=== PATIENT | male | born 1965 | race Caucasian/White ===

== ENCOUNTER 2017-05-11 10:07 | Inpatient (IN) | payer OTHER ==
[~2017-05-11] VITALS: Ht 193 cm; Wt 86.9 kg
--- NOTE | ~2017-05-11 | HP ---
[facility] [address] [place], [place] [address] Draft DATE OF ADMISSION: 05/11/17 SUBJECTIVE I was asked by the ER physician to see this gentleman for a bowel obstruction. The history is that the patient says that he was sick for 2 days with nausea and vomiting, frankly vomited 20 times. Never had belly surgery before. Workup by the ER doctor found him to have an apparent high-grade small bowel obstruction on CT scan. He does not have a regular physician. PAST MEDICAL HISTORY: He says he is allergic to penicillin. PAST SURGICAL HISTORY Include right inguinal hernia in the past. He says he takes no medicines. Denies hypertension, diabetes, tuberculosis, seizures or transfusion. He says he has not smoked for 3 days. He smokes half to a pack of Camel daily. Does not use alcohol and there is no history of thromboembolic disease. SOCIAL HISTORY He is not , never been. Has 3 children, ages 25 to 30. His mother is his next of kin. He does not know her phone number. He is not employed. 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 He lives in [place], about 10 minutes from the hospital. His hobby is dirt bike riding and working on cars. REVIEW OF SYSTEMS Negative for SC, negative for angina, negative for stroke. He says negative for pulmonary disease; however, he has wheezing and rhonchi on his physical. Negative for GI problems except for the present illness. Negative for musculoskeletal problems. He says he has his left knee operated on. Negative for problems. Negative for skin problems. Negative for blood problems such as hepatitis. Negative for thyroid or endocrine problems. Negative for lymphatic problems and negative for neurologic problems. PHYSICAL EXAMINATION GENERAL: large male who is cooperative, has abdominal distention. VITAL SIGNS: Okay. Afebrile, pulse 89, respiratory rate 19, blood pressure 112/76. HEAD, EYES, EARS, NOSE, AND THROAT: Normal. NECK: Without jugular venous distention, masses or bruits. Nurses put an NG tube in. I have reviewed the chest x-ray, told them to put it down another 3 inches and secure it. CHEST: Has wheezes and rhonchi throughout. HEART: Has a regular rate and rhythm without murmur, gallop or murmur. ABDOMEN: Has bowel tones. He has abdominal distention. So far, the NG tube is not putting much out. No evidence of peritonitis. He says his belly does hurt. PATIENT NAME: HERIBERTO BOOTHE HISTORY AND PHYSICAL DATE OF : 61 PHYSICIAN: JEAN MARIE BRIDGES MD REPORT #: [id number] REPORT IS CONFIDENTIAL AND NOT TO BE RELEASED WITHOUT AUTHORIZATION [facility] [address] [place], [place] [address] Draft RECTAL: Normal. HEME: Negative. GENITOURINARY: Normal. I do not detect any inguinal hernias. EXTREMITIES: Pedal pulses are normal. NEUROLOGIC: Normal for motor, sensory and speech, I presume he walked into the ER. LABORATORY DATA Reviewed. His white count is elevated at 17.8, hematocrit 55, platelets 400,000, 80% neutrophils, I suspect some of this is volume imbalance. Sodium 134, potassium 4.2, BUN 17, creatinine 1.2, glucose 154. LFTs are okay. Coags are pending. I told the ER doctor to get a chest x-ray, which we got after we put his NG tube in and which shows no obvious pulmonary infiltrates and I will get an EKG on him. IMPRESSION This is a 51-year-old male with an unusual history of no prior pelvic surgery. No injuries that he is aware of who appears to have a high-grade bowel obstruction. With a little bit of luck, he will resolve this with medical management. We gave NG suction, Maalox, IV fluid hydration, put a Robbins in and monitor him closely. Do an acute abdomen series on tomorrow morning and repeat his labs. Hopefully, he will get better. I did discuss with the patient the fact that I am a [place] surgeon, I will be leaving the area tomorrow morning at 7:00 a.m. and turning his care over to one of the local surgeons. He did not have a problem with that. Plan is to suck him out and see where it goes today. At the present time, I do not believe as an addendum that he has an acute surgical abdomen and that we can treat him medically and see where this goes. MD SUHAIL Jensen/Seth /[id number] PATIENT NAME: HERIBERTO BOOTHE HISTORY AND PHYSICAL DATE OF : 61 PHYSICIAN: JEAN MARIE BRIDGES MD REPORT #: [id number] REPORT IS CONFIDENTIAL AND NOT TO BE RELEASED WITHOUT AUTHORIZATION
[~2017-05-11 10:07] MED LIST: GENTAMICIN SULFA5 ML OS; IBUPROFEN600 MG PO; NORCO 5-325 TA1 EACH PO
--- NOTE | 2017-05-11 17:25 | NUR ---
Catheter placed at 1445 by Jaswinder CARVER. Catheter output 475ml at 1720. Bernadine urine. NG to LIS. Pt has foul body odor. Personal belongings placed in closet. Pt requested bello be removed. Educated patient on need for catheter and how the catheter works. RN explained "there is a balloon in your bladder that holds the catheter in place, so you will not want to pull it out without causing a lot of pain and damage to the urethra/penis". Pt understood teaching. Pt lying on right side. Pt requested cell phone to make personal phone call.
--- NOTE | 2017-05-11 19:02 | NUR ---
RECEIVED REPORT FROM RN. PATIENT DENIES NEEDS AT THIS TIME.
--- NOTE | 2017-05-11 20:19 | EKG ---
[facility] [address] [facility] [place] [address] Signed Normal sinus rhythm Normal ECG No previous ECGs available Confirmed by MICHAEL LUO MD ([id number]) on 05/11/2017 8:19:39 PM Electronically Signed By: MICHAEL LUO MD 05/11/17 2019 PATIENT NAME: HERIBERTO BOOTHE Electrocardiogram DATE OF : 61 PHYSICIAN: MICHAEL LUO MD REPORT #: [id number] REPORT IS CONFIDENTIAL AND NOT TO BE RELEASED WITHOUT AUTHORIZATION
--- NOTE | 2017-05-11 20:50 | NUR ---
ASSESSMENT DONE AND EVENING MEDICATION GIVEN. PATIENT DENIES NEEDS AT THIS TIME.
--- NOTE | 2017-05-11 21:48 | NUR ---
PATIENT GIVEN NICOTINE PATCH AND NG TUBE BACK ON LIS. PATIENT DENIES NEEDS AT THIS TIME.
--- NOTE | 2017-05-11 22:30 | NUR ---
PT UTILIZES CALL LIGHT, STATES THAT HE WAS INCONTINENT IN BED. PT UP TO BSC. DRAW SHEET CHANGED, NEW CHUX PAD PLACED. PT CONTINUES TO HAVE LIQUID STOOL. PT BACK TO BED. REQUESTS "WARM BLANKIE". DENIES OTHER NEEDS AT THIS TIME. CALL LIGHT WITHIN REACH.
--- NOTE | 2017-05-11 23:12 | NUR ---
PATIENT RESTING IN BED COMFORTABLY. BREATHING IS EVEN AND UNLABORED.
--- NOTE | 2017-05-12 00:07 | NUR ---
PATIENT RESTING COMFORTABLY IN BED. BREATHING IS EVEN AND UNLABORED.
--- NOTE | 2017-05-12 01:53 | NUR ---
PATIENT RESTING COMFORTABLY IN BED. RESPIRATIONS ARE EVEN AND UNLABORED. VITALS DONE, MEDICATION GIVEN, AND ASSESSMENT DONE. PATIENT DENIES NEEDS AT THIS TIME.
--- NOTE | 2017-05-12 04:09 | NUR ---
PATIENT RESTING IN BED. BREATHING IS EVEN AND UNLABORED.
--- NOTE | 2017-05-12 05:13 | NUR ---
PATIENT'S NIGHT WAS UNEVENTFUL AND RESTED IN BED MAJORITY OF SHIFT. VSS, NO COMPLAINTS OF NAUSEA. REPORTED 7/10 ABD PAIN, BUT DENIED PAIN MEDICATION. NO ACUTE CHANGES FROM BEGINNING OF SHIFT, INTENTIONAL ROUNDING DONE WITH ALL PATIENT'S NEEDS MET.
--- NOTE | 2017-05-12 05:49 | NUR ---
SHIFT ASSESSMENT DONE. PATIENT DENIES NEEDS AT THIS TIME.
--- NOTE | 2017-05-12 06:34 | NUR ---
PT OFF THE FLOOR TO XRAY. PT NG TUBE CLAMPED AND IV SL. PT TRANSFERED FROM BED TO INDEPENDENTLY.
--- NOTE | 2017-05-12 07:32 | NUR ---
BEDSIDE REPORT. PT ALERT. ADDRESSED WEARING SCDS WITH PT PER ORDERS. PT AGREED SCDS PLACED ON PT THIS AM.
--- NOTE | 2017-05-12 09:00 | NUR ---
KING CATHETER REMOVED, 9ML STERILE WATER REMOVED FROM BULB, PT TOLERATED WELL.
--- NOTE | 2017-05-12 11:06 | NUR ---
MED REC COMPLETE. PATIENT TAKES NO HOME MEDS.
--- NOTE | 2017-05-12 12:08 | NUR ---
PT RESTING IN BED, NG TUBE DOESN'T SEEM TO BE MUCH OF A BOTHER. HE MENTIONED THAT HE IS FEELING BETTER TODAY, AND HOPES THE SBO WILL CLEAR WITHOUT SURGERY.PT JOKED WITH RN WHEN SHE CAME IN, REQUESTED PRAYER, AND THANKED ME FOR STOPPNG BY. WILL CONTINUE TO FOLLOW NEEDED
--- NOTE | 2017-05-12 14:27 | NUR ---
PT BACK TO BED AFTER AMBULATING FOR 20 MINUTES. PT TOELRATED ACTIVITY WELL
--- NOTE | 2017-05-12 17:45 | NUR ---
PT HAS BEEN UP AMBULATING IN HALLS, HAS REQUIRED PAIN COVERAGE TWICE THIS SHIFT, HAS HAD THREE LIQUID STOOLS THIS SHIFT. NGT REPOSTIONED TWICE OVER SHIFT, DRIANING WELL. INDEPENDENT IN ROOM, WHEN NGT CLAMPED. HE HAS NOT HAD ANY NASUEA, HE REPORTS FEELING VERY HUNGRY. NGT HAS HAD VERY LITTLE OUT OVER SHIFT. VOIDING WELL POST KING REMOVED THIS AM. PT HAS REPORTED FEELING STRESSED ABOUT THINGS HE NEEDS TO GET DONE AT HOME.
--- NOTE | 2017-05-12 19:13 | NUR ---
RECEIVED REPORT FROM RN. PATIENT DENIES NEEDS AT THIS TIME.
--- NOTE | 2017-05-12 21:15 | NUR ---
ASSESSMENT DONE AND EVENING MEDICATIONS ADMINISTERED. PATIENT DENIES NEEDS AT THIS TIME.
--- NOTE | 2017-05-12 21:43 | NUR ---
PATIENT REPORTS 7/10 PAIN IN ABD. PAIN MEDICATION ADMINISTERED PER EMAR. PATIENT DENIES NEEDS AT THIS TIME.
--- NOTE | 2017-05-13 | NUR ---
PATIENT RESTING IN BED. BREATHING IS EVEN AND UNLABORED.
--- NOTE | 2017-05-13 00:45 | NUR ---
YPATIENT RESTING COMFORTABLY IN BED. BREATHING IS EVEN AND UNLABORED, CALL LIGHT WITHIN REACH.
--- NOTE | 2017-05-13 01:40 | NUR ---
PATIENT REPORTS 8/10 ABD PAIN. PAIN MEDICATION GIVEN PER EMAR. THROAT LOZENGE GIVEN FOR SORE THROAT. PATIENT DENIES OTHER NEEDS AT THIS TIME.
--- NOTE | 2017-05-13 03:15 | NUR ---
PATIENT REPORTS 5/10 ABDOMINAL PAIN, BUT DENIES NEED OF PAIN MEDICATION. HE IS RESTING COMFORTABLY IN BED, CALL LIGHT WITHIN REACH.
--- NOTE | 2017-05-13 04:33 | NUR ---
PATIENT'S NIGHT HAS BEEN UNEVENTFUL. VSS, NO COMPLAINTS OF NAUSEA. ABD PAIN HAS BEEN TREATED WITH PRN PAIN MEDICATION X2. NO ACUTE CHANGES FROM BEGINNING OF SHIFT ASSESSMENT. INTENTIONAL ROUNDING DONE WITH ALL PATIENT'S NEEDS MET.
--- NOTE | 2017-05-13 05:00 | NUR ---
PATIENT RESTING COMFORTABLY IN BED. BREATHING IS EVEN AND UNLABORED.
--- NOTE | 2017-05-13 06:29 | NUR ---
PATIENT REPORTS 6/10 ABD PAIN. PRN PAIN MEDICATION ADMINISTERED PER EMAR. PATIENT DENIES OTHER NEEDS AT THIS TIME.
--- NOTE | 2017-05-13 06:44 | NUR ---
PATIENT OFF FLOOR WITH RADIOLOGY VIA WHEELCHAIR.
--- NOTE | 2017-05-13 07:40 | NUR ---
RECIEVED REPORT FROM DAY SHIFT NURSE. PT RESTING IN BED WITH AT BEDSIDE. CLEAR LIQUID TRAY DELIVERED. RN APPLYTING INT SUCTION TO NGT. PT STATES PAIN AT A TOLERABLE LEVEL. DENIES NEEDS. CALL CASTILLO IN REACH.
--- NOTE | 2017-05-13 09:17 | NUR ---
PT IN BED WITH AT BEDSIDE. ADMINISTERD FLU VAX, CONSENT OBTAINED. PT C/O PAIN, ADMINISTERED PAIN MEDS PER MAR AND CEPACOL LOZENGE. PT STILL STATES HE FEELS DISTENDED. ACITVE BOWEL SOUNDS AUSCULTATED THROUGHOUT. PASSING FLATUS. NGT IN PLACE. IVF INFUSING W/O DIFFICULTY. PT DENIES FURTHER NEEDS. CALL CASTILLO IN REACH.
[2017-05-13] MEDS ORDERED: VITAMIN E200 UNI1 PO (09:38)
[2017-05-13] MEDS ORDERED: B COMPLEX1 EACH PO (09:38)
[2017-05-13] MEDS ORDERED: VITAMIN C500 M1 PO (09:39)
[2017-05-13] MEDS ORDERED: VITAMIN D400 UNIT PO (09:39)
[2017-05-13] MEDS ORDERED: ASPIRIN325 MG PO (09:40)
--- NOTE | 2017-05-13 09:41 | NUR ---
MED REC COMPLETE
--- NOTE | 2017-05-13 11:00 | NUR ---
PT RESTING IN BED. MAALOX ADMINISTERED THROUGH NGT IRRIGATED WITH WATER. PT DENIES NEEDS. CALL CASTILLO IN REACH.
--- NOTE | 2017-05-13 11:16 | NUR ---
PT SLEEPING. NGT SUCTION TURNED BACK ON AFTER MAALOX ADMINISTRATION. CALL CASTILLO IN REACH.
--- NOTE | 2017-05-13 12:00 | NUR ---
PATIENT TALKING ON PHONE WILL CHECK IN AGAIN FOR A SHOWER.
--- NOTE | 2017-05-13 12:20 | NUR ---
PT SLEEPING. CALL CASTILLO IN REACH.
--- NOTE | 2017-05-13 12:44 | NUR ---
PATIENT IN BED RESTING WITH EYES CLOSED.
--- NOTE | 2017-05-13 13:30 | NUR ---
PT AGITATED, RN AT BEDSIDE REQUESTING ASSISTANCE. DR. KNAPP CALLED, TELEPHONE ORDER TO GIVE 1 MG IV ATIVAN NOW, REPEAT DOSE IN 20 MINUTES IF NEEDED, RBOV. 1MG ATIVAN GIVEN.
--- NOTE | 2017-05-13 13:39 | NUR ---
RE-TAPED NGT TO NOSE. PT STATES HE CANNOT TOLERATE BECAUSE HE "CAN'T SWALLOW." REMOVED TAPE. PT CONTINUED TO ADVANCE NGT INTO HIS NOSE. PT WOULD NOT LET ME TOUCH THE NGT AND WOULD NOT LET ME PULL IT OUT MORE TO WHERE IT WAS BEFORE. PT RATES PAIN "20/10" IN THROAT. PT APPEARS VERY ANXIOUS (RESTLESS & SWEATING). MEDICATION ADMINISTERED PER OCT.
--- NOTE | 2017-05-13 14:26 | NUR ---
PATIENT RESTING IN BED WITH EYES CLOSED. CALL BUTT0N IN REACH. NO NEEDS AT THIS TIME.
--- NOTE | 2017-05-13 15:09 | NUR ---
PT SLEEPING. URINAL EMPTIED. URINE CLEAR/YELLOW. CALL CASTILLO IN REACH.
--- NOTE | 2017-05-13 16:20 | NUR ---
PT SHOWERED. WIPED DOWN WITH MINNA WIPES. PT C/O PAIN IN THROAT, PAIN MEDICATION ADMINISTERED PER OCT. AIRCRAFT PNEUDRAULIC [employer]S MECHANIC IN TO TRANSPORT PT TO OR. CHECKLIST COMPLETE.
--- NOTE | 2017-05-13 17:39 | NUR ---
PT OFF UNIT.
--- NOTE | 2017-05-13 18:22 | NUR ---
PT WENT TO THE OR THIS EVENING. HAD TO RETAPE NGT TO NOSE THIS AFTERNOON. PT BECAME VERY ANXIOUS AND COMBATIVE ALMOST PULLED OUT NGT. OBTAINED ORDER FROM FOR ATNICHELLE WHICH WORKED WELL. NO STOOLS TODAY, PASSING FLATUS, MINIMAL PAIN IN ABD. PAIN MOSTLY LOCATED IN THROAT. PT SHOULD BE RETURNING TO FLOOR AT 1900.
--- NOTE | 2017-05-13 18:51 | NUR ---
05/13/17 185 Sangita Cramer ORAL AIRWAY REMOVED ON PATIENT'S ENTRY TO PACU. PT RESTLESS AND REPORTING "I CAN'T BREATHE". OXYGEN SATURATION REMAINS 100% HOB ELEVATED. PT REMOVES OXYGEN MASK AND IS ON RA.
--- NOTE | 2017-05-13 19:15 | NUR ---
RECEIVED REPORT FROM RN. PATIENT OFF FLOOR IN SURGERY.
--- NOTE | 2017-05-13 20:00 | NUR ---
PATIENT BACK TO FLOOR FROM SURGERY. RECEIVED REPORT FROM SURGICAL NURSE. PATIENT RESTING COMFORTABLY IN BED. 2L OF 02 WITH PUSLE OX AT 95%. ASSESSMENT DONE, EVENING MEDICATION GIVEN. PATIENT DENIES NEEDS AT THIS TIME.
--- NOTE | 2017-05-13 20:56 | NUR ---
SPOKE WITH DR. KNAPP REGARDING PATIENT'S BLOOD PRESSURE OF 88/56, HEART RATE 71. 1L LR BOLUS ORDERED X1. MAALOX ORDER DC'D PER MD'S ORDER. KING IS TO STAY IN PLACE UNTIL PATIENT IS AMBULATORY AND URINE OUTPUT IS APPROPRIATE PER MD.
--- NOTE | 2017-05-13 22:11 | NUR ---
OVERHEARD PT YELLING CUSS WORDS AT HIS GIRLFRIEND FROM HIS ROOM, YELLING WAS HEARD ALL THE WAY TO THE NURSES STATION. ENTERED PT'S ROOM, PT APPEARED TO BE UPSET AT THE GIRLFRIEND FOR SOMETHING TO DO WITH HIS PHONE. PT TOLD THE GIRLFRIEND TO "GET THE FUCK OUT OF MY ROOM, YOU PEICE OF SHIT." GIRLFRIEND LEFT. PT CALM NOW, VITALS TAKEN. BROUGHT PT SOME APPLE JUICE. NO FURTHER NEEDS. CALL LIGHT IN REACH.
--- NOTE | 2017-05-14 00:58 | NUR ---
PATIENT REPORTS 10/10 ABD PAIN. RESPIRATIONS AT 16 BPM, HEART RATE 99, BP, 126/101. IV PRN PAIN MEDICATION GIVEN PER EMAR. PATIENT DENIES OTHER NEEDS AT THIS TIME.
--- NOTE | 2017-05-14 02:07 | NUR ---
PATIENT RESTING COMFORTABLY IN BED. BREATHING IS EVENE AND UNLABORED. O2 SAT AT 98% ON 2L VIA NC, HEART RATE IS 94. OXYGEN TITRATED DOWN TO 1L. WILL CONTINUE TO MONITOR O2 SAT.
--- NOTE | 2017-05-14 03:41 | NUR ---
PATIENT IS RESTING IN BED. REPOSITIONED AND STRAIGHTENED UP BED FOR COMFORT. BREATHING IS EVEN AND UNLABORED, 02 SAT AT 99% ON 1L VIA NC. TOOK OXYGEN OFF AND WILL MONITOR OXYGEN SATURATION. PULSE IS 89. PATIENT REPORTS ABD PAIN, BUT DENIES PAIN MEDICATION. HE DENIES NEEDS AT THIS TIME.
--- NOTE | 2017-05-14 04:50 | NUR ---
PATIENT REPORTS 10/10 PAIN. PRN PAIN MEDICATION ADMINISTERED. EDUCATED PATIENT ON PAIN CONTROL AND PATIENT STATED THAT HE UNDERSTOOD AND DEMONSTRATED KNOWLEDGE WITH FEEDBACK. PATIENT DENIES OTHER NEEDS AT THIS TIME.
--- NOTE | 2017-05-14 05:59 | NUR ---
PATIENT'S NIGHT WAS PRIMARILY UNEVENTFUL. HE RESTED IN BED FOR MAJORITY OF SHIFT. IV PRN PAIN MEDICATION GIVEN X3 PER EMAR. NO ACUTE CHANGES FROM BEGINNING OF SHIFT ASSESSMENT. OP SITES REMAIN C/D/I.
--- NOTE | 2017-05-14 06:20 | NUR ---
PT COMPLAINED OF 7/10 PAIN, GAVE DILAUDID IV FOR PAIN. PT IN NO APPARENT DISTRESS AT THIS TIME. LIGHTS AND TV OFF IN ROOM.
--- NOTE | 2017-05-14 07:45 | NUR ---
RECIEVED REPORT FROM DAY SHIFT NURSE. PT RESTING IN BED. MIDLINE ABDOMINAL DRESSING C/D/I. LAP SITE WITH MINIMAL DRY, BLOODY DRAINAGE. PT RATES HIS PAIN 04/02. STATES HE IS UNABLE TO DESCRIBE WHAT THE PAIN FEELS LIKE, BUT ALSO SAYS "IT FEELS LIKE A CHAINSAW RIPPED THROUGH MY STOMACH FROM TOP TO BOTTOM." PAIN MEDS ADMINISTERED PER OCT. MEAL TRAY DELIVERED. PT LAUGHING AND SMILING TELLING ME STORIES ABOUT ALL HIS CARS HE OWNS. KING EMPTIED. PT DENIES FURTHER NEEDS. CALL CASTILLO IN REACH.
--- NOTE | 2017-05-14 09:20 | NUR ---
PT REQUESTING FOR MORE PAIN MEDICATION. RN STARTING NEW IV SITE SO SHE MAY ADMINISTER.
--- NOTE | 2017-05-14 10:42 | NUR ---
PT RESTING IN BED. DENIES NEEDS AT THIS TIME. CALL CASTILLO IN REACH.
--- NOTE | 2017-05-14 10:54 | NUR ---
OBTAINED ORDER TO D/C KING CATHETER FROM DR. KNAPP.
--- NOTE | 2017-05-14 11:06 | NUR ---
REMOVED KING CATHETER. P/T C/O PAIN. STATES HE WAS "DUE" 30 MINUTES AGO. I REMINDED HIM HE IS NOT "DUE" FOR ANYTHING AT THIS TIME AND THAT THE PAIN MEDICATION IS BASED ON AN NEEDED SCHEDULE. EDUCATED HIM WHY IT IS IMPORTANT TO ONLY TAKE PAIN MEDICATION IF HE IS IN MODERATE TO SEVERE PAIN. PT STATES HE UNDERSTANDS. CALL CASTILLO IN REACH.
--- NOTE | 2017-05-14 12:26 | NUR ---
pt ambulating in hallway independently. gait steady. denies needs.
--- NOTE | 2017-05-14 13:08 | NUR ---
PATIENT AWAKE IN BED. PICKED UP ROOM SET HIM UP FOR AM CARE. EMPTEYED GARBAGE. FRESH ICE WATER CHANGED LINENS.
--- NOTE | 2017-05-14 14:01 | NUR ---
PT RESTING IN BED. PT VERY AGITATED AT THIS TIME OVER HIS GIRLFRIEND AND HIS CATS AT HOME THAT ARE NOT FED. HE IS ALSO FRUSTERATED AT THE FACT HE STILL HAS NOT PASSED ANY GAS. HE HAS BEEN REQUESTING AN ENEMA. PT HAS NOT PASSED FLATUS YET BUT HE DID "DIG SOME POOP OUT." PT STATES HIS PROBLEM IS THAT HE ATE TOO MUCH CHEESE BEFORE HE WAS ADMITTED. STATES HIS STOOL APPEARS TO LOOK LIKE CHEESE. ATIVAN ADMINISTERED. ATTEMPTED TO CALL ARIA BUT I BELIEVE HE HAS A PROCEDURE AT THIS TIME. CALL ANNA IN REACH.
--- NOTE | 2017-05-14 15:15 | NUR ---
PT STILL AGITATED AND WANTS A LAXATIVE. CALLED DR. KNAPP. OBTIANED VERBAL ORDER TO REPEAT 0.5MG ATIVAN IVP NOW. ADMINISTERED MEDICATION. CALL ANNA IN REACH.
--- NOTE | 2017-05-14 15:31 | NUR ---
dr. law in to see pt.
--- NOTE | 2017-05-14 16:21 | NUR ---
ADMINISTERED SOAPS OTILIA ENEMA. PT TOLERATED 500CC. PT C/O PAIN IN HIS LOWER ABDOMINAL QUADRANTS. PAIN MEDS ADMINISTERED PER OCT. PT DENIES FURTHER NEEDS. CALL CASTILLO IN REACH.
--- NOTE | 2017-05-14 16:58 | NUR ---
PT DID NOT HAVE LUCK WITH FIRST ENEMA. SMALL AMOUNT OF STOOL OUT. ADMINISTERED SECOND ENEMA-[id number]. PT RESTING IN BED. SON AT BEDSIDE. DENIES NEEDS AT THIS TIME. CALL CASTILLO IN REACH.
--- NOTE | 2017-05-14 17:59 | NUR ---
PT HAS HAD AN OKAY DAY. HE HAS BEEN AMBULATING THE HALLWAYS, PAIN HAS BEEN CONTROLLED WITH DILAUDID. PT BECAME VERY AGITATED TODAY BECAUSE HE IS FRUSTERATED HE HAS NOT BEEN ABLE TO PASS GAS EVEN WITH AMBULATING THE HALLWAYS. HE IS ALSO ANXIOUS ABOUT HIS ANIMALS AT HOME NOT GETTING FED AND HAVING NO WATER. HE IS UPSET AT HIS AND DOES NOT TRUST HER TO FEED HIS ANIMALS. ATIVAN HAS BEEN GIVEN NEEDED. TWO SOAP SUDS ENEMAS ADMINISTERED. BS ACTIVE. NO FLATUS. IVF INFUSING. NEW IV IN L AC.
--- NOTE | 2017-05-14 19:00 | NUR ---
RECEIVED REPORT AT 1900. FOUND PT IN BED SLEEPING.
--- NOTE | 2017-05-14 22:06 | NUR ---
CAME INTO PT ROOM AND FOUND DULCOLAX PILLS THAT HE HAD TAKEN FROM HIS HOUSE. PT STATED THAT HE HAS BEEN TAKING THEM. I TOOK THEM FROM HIM AND THEY WERE PUT INTO THE KITS-LIST FOR NOW. PT IS NOT PASSING GAS, PT HOWEVER STATED THAT HE HAD A VERY SMALL BM. I DID NOT SEE IT BECAUSE PT FLUSHED IT. PT SO FAR REMAINS CALM AND COOPERATIVE. PAIN ALWAYS IS A 8-10/10. ALL LOBES ARE CLEAR, ALL BOWEL TONES ARE HYPOACTIVE. V/S ARE WDL. PT SO FAR HAS AMBULATED X1 THIS SHIFT.
--- NOTE | 2017-05-15 00:58 | NUR ---
PT NEEDED MORE PAIN MEDICATION. PT HAS BEEN SLEEPING FOR THE LAST COUPLE OF HOURS. PT IS BACK IN BED. PT IS NOT PASSING GAS SO FAR.
--- NOTE | 2017-05-15 04:27 | NUR ---
PT SEEMS TO BE SLEEPING AT THIS TIME.
--- NOTE | 2017-05-15 05:06 | NUR ---
PAIN CONTROL HAS BEEN AN ISSUE FOR THE MOST PART OF THIS SHIFT. PT IS ON SERVICE GREETER DUE TO HIGH DOSES OF IV DILAUDED. PT HAS BOWEL TONES IN ALL QUADRANTS. PT DENIES PASSING GAS. PT STATED AT START OF SHIFT THAT HE HAD A SMALL BM. WHEN I LOOKED INTO TO TOILET THERE WAS ONLY A SCANT AMOUNT OF STOOL ON THE TOILET BOWEL WALL. AT START OF FIRST ASSESSMENT I NOTICED THAT PT HAS BEEN TAKING DULCOLAX TABLETS HE BROUGHT FROM HOME. I TOOK THEM FROM HIM AND THEY ARE IN HIS KIT-LIST AT THIS TIME. PT HAS REMAINED CALM AND COOPERATIVE SO FAR THIS SHIFT. PT AMBULATED X1 THIS SHIFT. V/S ARE WDL. PT HAS NORMAL BOWEL TONES IN ALL QUADRANTS.
--- NOTE | 2017-05-15 08:00 | NUR ---
PATIENT UP AMBULATING IN RIOS. COMPLAINTS OF IV POSITIONED ON ARM, PLACED NEW IV TO LEFT WRIST. ABDOMEN CONTINUES TO BE DISTENDED. COMPLAINTS OF PAIN, ADMINISTERED 1MG IV DILAUDID. RATES PAIN 5/10 ON PAIN SCALE. PATIENT VOIDING WELL, NO ACTIVE FLATUS. TALIB TONES ACTIVE. LUNG SOUNDS CLEAR.
--- NOTE | 2017-05-15 11:00 | NUR ---
CALLED DR. KNAPP TO REPORT UPDATE AND PATIENT STATUS. NO NEW ORDERS AT THIS TIME, JUST TO CONTINUE TO ENCOURAGE AMBULATION. PATIENT AGREES TO POC. STATES " AFTER I TAKE A NAP, I WILL GET UP AND WALK THESE HALLS LIKE A MAD MAN". PATIENT APPEARS CALM AND COMFORTABLE.
--- NOTE | 2017-05-15 13:00 | NUR ---
PATIENT AMBULATING IN HALLS. TOLERATING RICH MILK THAT DR. KNAPP WROTE OKAY TO HAVE. PATIENT APPEARS PLEASANT. INCSION'S DRY AND INTACT. PATIENT STATES " I AM ONLY HAVING PAIN AFTER I AMBULATE A WHOLE BUNCH". BOWEL TONES ACTIVE, NO FLATUS.
--- NOTE | 2017-05-15 17:00 | NUR ---
PATIENT CONTINUES TO AMBULATE THROUGHOUT HALLS FOR EXTENDED AMOUNTS OF TIME IN HALLS. APPEARS TO MOVE WITH EASE. HAD TO TELL PATIENT TO STOP USING IV POLE SCOOTER DOWN THE RIOS. PATIENT VERBALIZED UNDERSTANDING AND STOPPED ACTIVITY. CONTINUES TO TOLERATE CLEAR LIQUIDS.
--- NOTE | 2017-05-15 20:00 | NUR ---
RECEIVED REPORT. PATIENT IN BED IN GOOD SPIRITS TALKING ON THE PHONE. ALERT AND ORIENTED. PATIENT DENIES PAIN AND IS IN NO APPARENT DISTRESS.
--- NOTE | 2017-05-15 22:00 | NUR ---
PATIENT RESTING QUIETLY IN BED WATCHING TV. PATIENT HAS HYPOACTIVE BOWEL TONES X4. MIDLINE ABD DRESSING C/D/I AND STERISTRIP JUST BELOW STERNUM ALSO DRY AND INTACT. lUNG SOUND CLEAR THROUGHOUT ALL SABA. PATIENT IS ALERT, ORIENTED, AND COOPERATIVE. LOWER MIDLINE ABD PAIN 3/10, BUT PATIENT DECLINES PAIN MEDICATION AT THIS TIME. MOVES ALL EXTREMITIES, VOIDING PER URINAL WITHOUT DIFFICULTY. PERIPHERAL PULSES ALL STRONG AND EQUAL. HEART TONES NORMAL S1/S2. VITAL SIGNS WITHIN MEDICAL PARAMETERS. IV PATENT WITH NO REDDNESS OR SWELLING.
--- NOTE | 2017-05-16 00:01 | NUR ---
PATIENT HAS C/O 4/10 LOWER ABD PAIN AND REQUESTING PAIN MEDICATION. 1 MG OF DILAUDID SIVP GIVEN FOR PAIN.
--- NOTE | 2017-05-16 00:55 | NUR ---
PAIN REASSESSED AND PATIENT IS RESTING QUITLY, RESPIRATIONS EVEN AND UNLABORED, EYES CLOSED.
--- NOTE | 2017-05-16 02:28 | NUR ---
PATIENT AWAKE AT THIS TIME. PAIN 5/10 IN THE LOWER MIDLINE ABD, BUT PATIENT DOES NOT WISH TO HAVE PAIN MEDICATION AT THIS TIME. BOWEL TONES ARE STILL HYPOACTIVE IN ALL 4 QUADRANTS, BUT MORE ACTIVE THAN AT THE LAST ASSESSMENT. PATIENT IS IN GOOD SPIRITS AND DOES NOT APPEAR TO BE IN ANY DISTRESS.
--- NOTE | 2017-05-16 04:03 | NUR ---
PATIENT RESTING QUIETLY ON LEFT SIDE, EYES CLOSED, RESPIRATIONS EVEN AND UNLABORED.
--- NOTE | 2017-05-16 05:30 | NUR ---
PATIENT HAS SLEPT WELL MOST OF THE SHIFT. HE HAS ASKED FOR PAIN MEDICATION TWICE AND PAIN WAS RELIEVED EACH TIME WITH 1MG OF DILAUDID IV. PATIENTS LUNGS ARE CLEAR THROUGH OUT, HE IS ALERT AND ORIENTED, AND APPEARS TO BE IN FAIRLY EVERT SPIRITS. HIS BOWEL TONES ARE ARE STILL HYPOACTIVE IN ALL FOUR QUADRANTS. PATIENT HAS NOT HAD A BOWEL MOVEMENT AND IS STILL NOT PASSING GAS. HE IS TAKING CLEAR LIQUIDS WELL AND IS VOIDING WITHOUT DIFFICULTY. IV REMAINS D5LR AT 75MLS/HR.
--- NOTE | 2017-05-16 06:14 | NUR ---
PATIENT RESTING QUIETLY ON RIGHT SIDE, EYES CLOSED, RESPIRATIONS EVEN AND UNLABORED.
--- NOTE | 2017-05-16 06:37 | NUR ---
PATIENT HAD AN 8LB DECREASE IN HIS WEIGHT SINCE YESTERDAY.
--- NOTE | 2017-05-16 08:39 | NUR ---
PATIENT IS AWAKE IN BED. DID NOT NEED ANYTHING. WHITEBOARD UPDATED.
--- NOTE | 2017-05-16 08:40 | NUR ---
PATIENT IS AWAKE IN BED. DID NOT NEED ANYTHING CURRENTLY, WHITEBOARD UPDATED.
--- NOTE | 2017-05-16 10:00 | NUR ---
PATIENT UP AMBULATING IN HALLS, DR. KNAPP TO FLOOR TO ROUND. PATIENT MAY SHOWER, DIET ADVANCED TO REGULAR DIET. VS STABLE, AFEBRILE. ABDOMEN LESS DISTENDED.
--- NOTE | 2017-05-16 10:36 | OR ---
[facility] [address], [place] [address] Signed DATE OF PROCEDURE: 05/13/17 PREOPERATIVE DIAGNOSES Persistent small bowel obstruction. [place] abdomen. 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 PROCEDURE Laparoscopy. Conversion to open laparotomy with lysis of right lower quadrant adhesions and appendectomy. SURGEON: Segundo Knapp MD. ANESTHESIA: General endotracheal, Segundo Devine CRNA. INDICATION This 50-year-old white man was admitted by Dr. Obrien on 05/11/2017 with protracted nausea and vomiting and some diarrhea and abdominal distention and findings on CT scan showing a massively dilated stomach and dilated air-fluid levels and findings interpreted to be "high grade bowel obstruction." A nasogastric tube and Robbins catheter was placed and fluid resuscitation undertaken. I assumed his care. The following day. He has been monitored closely and been maintained with intravenous fluids, parenteral pain medication, and nasogastric tube decompression. His Robbins catheter was removed once serous fluid resuscitated. His white count was initially elevated to 18,500 and has progressively decreased, now 11,500. However, he maintains abdominal distention. He does not have much pain. Abdominal x-ray shows air fluid levels on KUB. Given the fact he has not had abdominal operation (other than right inguinal hernia repair), it is probable there is a surgical cause of obstruction other than adhesions and additional waiting is deemed inappropriate. I have offered laparoscopy with remedy of the problem that way if possible, possibly requiring conversion to open operation. He understands as does his common-law the risks of bleeding, infection, need for open procedure, need for bowel resection, and other unforeseen complications. Understanding this they wished to proceed. Electronically Signed By: SEGUNDO KNAPP MD 05/16/17 1036 PATIENT NAME: HERIBERTO BOOTHE OPERATIVE REPORT DATE OF : 61 PHYSICIAN: SEGUNDO KNAPP MD REPORT #: [id number] REPORT IS CONFIDENTIAL AND NOT TO BE RELEASED WITHOUT AUTHORIZATION [facility] [address], [place] [address] Signed FINDINGS On laparoscopic view, inflamed and dilated loops of bowel were noted. The liver was normal. The gallbladder looked to have chronic inflammatory change. The cecum itself appeared normal. Examination of the terminal ilium showed it to be somewhat scarred to the posterior pelvic peritoneum, it was not elevated in the typical way by any means. It was assumed this was the likely source of obstruction. There was no evidence whatsoever of Crohn's disease. The small bowel run proximally from a laparoscopic perspective showing no Meckel's diverticulum stricture or other particular problem. Attempts at mobilizing the ilium from the retroperitoneum and what appeared to be an Atretic and somewhat scarred but not acutely inflamed appendix were unsuccessful and on that basis, conversion to a mini-laparotomy with an infraumbilical incision was undertaken. He was ultimately found to have adhesions of the retroperitoneum associated with a long Atretic, non-acutely inflamed appendix. Mobility of the ilium, cecum, and of course appendectomy were performed allowing for what appeared to be freeing of the bowel. The bowel was run from the ligament of Treitz to the terminal ilium showing no sign of obstructive process otherwise. Th e ilium itself was slightly ischemic once mobilized, but with irrigation and so forth, it appeared to settle down and is viable. PROCEDURE IN DETAIL The patient was brought to the operating room, given a general endotracheal anesthetic. Preoperative antibiotic Cefoxitin was given. Sequential compression device stockings were used. A Robbins catheter was placed by the circulating nurse. The abdomen was clipped and prepared with Chlorhexidine solution and draped sterilely. An infraumbilical incision was made and using an open Shar cannula technique, pneumoperitoneum was achieved to a level of 14 mmHg of carbon dioxide gas. Intraabdominal inspection showed no sign of ascites or carcinomatosis, but definitely showed dilated loops of bowel, many of them significantly inflamed. Examination of the upper abdomen showed normal liver and a somewhat distended and chronically inflamed gallbladder. There was no sign of acute cholecystitis however. The table was positioned left side down and ultimately reverse Trendelenburg and examination of the cecum undertaken. The attempts to identify clearly the terminal ilium were unsuccessful initially. There appeared to be tethering of the bowel in the retroperitoneum behind the cec um. The tip of the appendix was identified. It was Atretic , not acutely inflamed, but apparently rather elongated. The small bowel was grasped where it was free proximal to the area of the terminal ileum and careful manipulation of the bowel undertaken examining the dilated loops proximally for other sources of obstruction. There was no evidence of Meckel's diverticulum or other problem. Attention was once again returned to the ileum. Normally, the ilium would be easily freed up and able to be mobilized and more fully examined, but it appeared to be tethered as described. Various maneuvers endoscopically were unsuccessful and it was Electronically Signed By: SEGUNDO KNAPP MD 05/16/17 1036 PATIENT NAME: HERIBERTO BOOTHE OPERATIVE REPORT DATE OF : 61 PHYSICIAN: SEGUNDO KNAPP MD REPORT #: [id number] REPORT IS CONFIDENTIAL AND NOT TO BE RELEASED WITHOUT AUTHORIZATION [facility] [address] [facility] [place], [place] [address] Signed clear that he would require extension of his infraumbilical incision to allow for open laparotomy. The trocars that were place d including the epigastric and suprapubic ones were removed under direct visualization showing no sign of bleeding. The infraumbilical incision was extended inferiorly, the abdomen was entered. The small bowel was delivered out of the abdomen extended from the ligament of Treitz to the terminal ileum and examined. It appeared definitely that there was tethering of the ilium to the retroperitoneum, but no neoplasm and certainly no evidence of Crohn's disease. Atretic appendix appeared to be part of the process. The cecum was mobilized a bit and ultimately the ilium freed more fully from tethering of the mesoappendix and mesoappendix was surprisingly elongated, Atretic, not acutely inflamed, but definitely part of this process. Ultimately, the mesoappendix was freed and secured with clips and divided. The base the appendix was clamped and crush hieu secured with a 3-0 Vicryl tie. Using 3-0 Vicryl suture, the stump was inverted using a Z-type stitch. The small bowel was run from the terminal ilium more proximally to the ligament of Treitz showing no sign of abnormality. The small bowel was returned to the abdominal cavity and warm irrigation undertaken which allowed its slightly ischemic appearance from brief evisceration to subside. Reinspection of the ileum was undertaken. It did show some minimal ischemic changes and irrigation was more fully undertaken and its vascular supply assured. After time it was reinspected and found to be viable. Copious amounts of intraabdominal irrigation was undertaken to "float" the bowel and allow for repositioning and natural configuration. The omentum was replaced over the abdominal contents after removal of irrigation fluid and after ascertaining no sign of bleeding. Midline fascia was reapproximated with running bidirectional #1 PDS suture. Subcutaneous tissue at the trocar sites and laparotomy incision were irrigated with saline solution. The skin closed with running subcuticular 3-0 Vicryl. Steri-Strips were applied as was a Mepilex silver sponge dressing and OpSite. The patient was ultimately extubated and transferred to recovery room in good condition having suffered no complication. Sponge, needle, and instrument counts reported as correct x3. Segundo Knapp MD Electronically Signed By: SEGUNDO KNAPP MD 05/16/17 1036 PATIENT NAME: HERIBERTO BOOTHE NORA OPERATIVE REPORT DATE OF : 61 PHYSICIAN: SEGUNDO KNAPP MD REPORT #: [id number] REPORT IS CONFIDENTIAL AND NOT TO BE RELEASED WITHOUT AUTHORIZATION [address] [address] Signed TAL/Seth /[id number] cc: Ed Obrien MD Electronically Signed By: SEGUNDO KNAPP MD 05/16/17 1036 PATIENT NAME: HERIBERTO BOOTHE OPERATIVE REPORT DATE OF : 61 PHYSICIAN: SEGUNDO KNAPP MD REPORT #: [id number] REPORT IS CONFIDENTIAL AND NOT TO BE RELEASED WITHOUT AUTHORIZATION
--- NOTE | 2017-05-16 10:36 | HP ---
[facility] [address], [place] [address] Signed DATE OF ADMISSION: 05/11/17 ISSUE: Small-bowel obstruction. HISTORY This 51-year-old white man was admitted by Dr. Obrien on May 11, 2017. Dr. Obrien was the [place] surgeon. He presented to the emergency room with abdominal pain that had been going on at least 24 hours and possibly more. He had a fair amount of diarrhea without associated bleeding as well as vomiting. He has never had abdominal operation, though did have left iliac bone harvest for a knee operation in the past as well as right inguinal hernia repair in the past. His evaluation included CT scan of the abdomen showing a "high-grade small bowel obstruction." He was admitted and given a nasogastric tube, a Robbins catheter and some fluid administration. I assumed care today having discussed the case with Dr. Obrien last night. The patient says he feels somewhat better. He has had no vomiting since the nasogastric tube has been in place and his pain is improved. He has had some diarrhea this morning he says, but the nurse who attends to him at this time does not know of any diarrhea since approximately 7:30 this morning. He denies abdominal surgery of any type. There has been no evidence of a hernia of any sort either. At admission, his white count was elevated to 17.8 with hematocrit of 55, platelets of 400,000. Liver enzymes normal and a creatinine of 1.2. An EKG has been obtained and interpreted by Dr. Dhillon and found to be normal. REVIEW OF SYSTEMS He denies any back pain or lower extremity pain. He has had no dysphagia or hematemesis. He does not generally have diarrhea. PHYSICAL EXAMINATION GENERAL: A tall white man, who looks to be in no current distress. VITAL SIGNS: Temperature 97.5, pulse 80, respirations 14, blood pressure 113/68. His urine output over the last 4 hours has been 128 mL. Robbins catheter shows clear urine. NECK: No thyromegaly or cervical adenopathy. Trachea is midline. He has no hoarseness. CHEST: Clear. HEART: Regular without murmur. Electronically Signed By: SEGUNDO KNAPP MD 05/16/17 1036 PATIENT NAME: HERIBERTO BOOTHE HISTORY AND PHYSICAL DATE OF : 61 PHYSICIAN: SEGUNDO KNAPP MD REPORT #: [id number] REPORT IS CONFIDENTIAL AND NOT TO BE RELEASED WITHOUT AUTHORIZATION [facility] [address], [place] [address] Signed ABDOMEN: Somewhat distended, but not particularly tender. There are no mass and no ascites. EXTREMITIES: No clubbing, cyanosis, or edema. There is a scar over his left anterior superior iliac spine indicative of prior bone harvest for his knee. LABORATORY DATA Lab studies today show a white count decreased to 13.5, hematocrit 46.6 platelets 317,000. Chem profile is essentially normal, glucose 119. Amylase and lipase are normal. His abdominal plain x-ray from today shows no significant change, showed multiple moderately dilated loops of small bowel up to 4.1 cm and multiple air-fluid levels noted. ASSESSMENT The patient has a small-bowel obstruction from unknown etiology having a virgin abdomen essentially. In most cases, operative intervention is necessary in this setting. The possibility of neoplasm of the small bowel, Crohn's disease, or inflammatory stricture or of course a de-Zac adhesion accounting for obstruction is a consideration. He needs additional fluid resuscitation, but likely will ultimately require operation. Spontaneous resolution of problem would be most welcome, but appears to be unlikely based on his progress so far. We discussed this in detail. I believe that the Robbins catheter can be removed and his urine output monitored reasonably without it at this time. MD TAL Garduno/Modl /[id number] Electronically Signed By: SEGUNDO KNAPP MD 05/16/17 1036 PATIENT NAME: HERIBERTO BOOTHE HISTORY AND PHYSICAL DATE OF : 61 PHYSICIAN: SEGUNDO KNAPP MD REPORT #: [id number] REPORT IS CONFIDENTIAL AND NOT TO BE RELEASED WITHOUT AUTHORIZATION
--- NOTE | 2017-05-16 13:00 | NUR ---
PATIENT TOLERATING REGULAR DIET WELL, NO COMPLAINTS OF PAIN. AT THIS TIME PATIENT IS RESTING IN BED WITH EYES CLOSED. PATIENT STATES " I AM FEELING SO GOOD AFTER A HOT SHOWER AND SOME REAL FOOD". PATIENT APPPEARS TEARY EYED. APROPRIATE WITH CARE.
--- NOTE | 2017-05-16 17:00 | NUR ---
PATIENT UP TO BATHROOM, AND UP AMBULATING IN HALLWAYS. DRINKING FLUIDS AND EATING WELL. WOKE UP FROM NAP, REPORTS FEELING UNCOMFORTABLE. PATIENT STATES " I AM FEELING HAPPY ABOUT EATING AND FEELING LIKE I COULD FART." REPORTS HE DOES NOT WANT TO PUSH THE GAS OUT BUT CAN FEEL IT MOVING INSIDE OF HIM. ENCOURAGED PATIENT TO CONTINUE TO AMBULATE IN HALLS.
--- NOTE | 2017-05-16 18:30 | NUR ---
PATIENT'S ARRIVED TO FLOOR, PATIENT SITTING IN ROOM TEARY EYED, AND APPEARING ANXIOUS WITH DRAMATIC ARM MOVEMENTS, AND TALKING VERY LOUDLY. WENT TO DC FLUIDS PER DR. KNAPP ORDERS AND PATIENT STATED " I AM SCARED IF YOU TAKE THOSE AWAY, CAN I JUST FINSISH THE BAG OF FLUIDS AND DRINK OTHER STUFF". WILL DC FLUIDS WHEN IV BAG OF FLUIDS IS DRY. ADMINISTERED 1MG IV ATIVAN.
--- NOTE | 2017-05-16 19:49 | NUR ---
pt sitting up in bed, eating, visiting with . no c/o pain or distress
--- NOTE | 2017-05-16 21:47 | NUR ---
coop with assessment
--- NOTE | 2017-05-16 23:42 | NUR ---
c/o abd pain, medicated with toradol.
--- NOTE | 2017-05-17 02:17 | NUR ---
PT AWAKE, WATCHING VIDEOS VIA PHONE WITH , NO FURTHER C/O PAIN, DENIES PASSING GAS, ABD DISTENDED, DRESSING INPLACE.
--- NOTE | 2017-05-17 03:19 | NUR ---
medicated with dilaudid 1 mg iv c/o abd pain, still not passing gas stated, abd still distended, burping very well,
--- NOTE | 2017-05-17 05:04 | NUR ---
Pt currently resting, eyes closed, no distress. Has been medicated twice per pain, once with toradol and once with dilaudid with very good pain control. Pt abd continues to be distended and timpanic on the left side, hyperactive bowel tones upper abd, hypoative lower abd. Abd dressing in place, mepilex, and opsite. dry, tender to touch. Pt burping quite often, stated not passing gas rectally.. Walked hallways twice. SL intact. Pt is on regular diet, tolerating well, no c/o n/v or dry heaving. in room.
--- NOTE | 2017-05-17 09:44 | NUR ---
PATIENT RESTING IN BED, ADMINISTERED 1 MG IV DILAUDID PAIN MEDICATION, RATES PAIN 6/10 ON PAIN SCALE. PATIENT STATES " I FEEL SORE TODAY". PATIENT APPEARS DEPRESSED, TALKING ABOUT MEMORIES FROM WAR AND CONDITIONS OF OTHER COUNTRIES. BREAKFAST SITTTING ON BEDSIDE TABLE NEXT TO HIM, STATES " I AM JUST NOT READY YET TO EAT". VS STABLE. DRESSING TO MIDLINE, C/D/I. BOWEL TONES ACTIVE, LUNG SOUNDS CLEAR. FULL BODY ASSESMENT DONE. ENCOURAGED PATIENT TO GET UP AND AMBULATE IN HALLS WHEN PAIN IS MORE CONTROLLED.
--- NOTE | 2017-05-17 11:00 | NUR ---
PATIENT UP AMBULATING IN HALLS. IN ROOM WITH PATIENT NOW, CONVERSING CALMLY. NO COMPLAINTS OF PAIN AT THIS TIME. VS STABLE. BOWEL TONES ACTIVE. PATIENT SAYS, " I HAVE THE URGE TO FART BUT CAN'T"
--- NOTE | 2017-05-17 14:34 | NUR ---
PATIENT WAS IN ED WITH HIS SIGNIFICANT OTHER WHEN I WENT IN TO DO VITALS, HE HADNT ATE HIS LUNCH YET, BUT SAID HE WOULD EAT A LITTLE AFTER HIS REST.
--- NOTE | 2017-05-17 17:27 | NUR ---
IN TO WAKE PT UP TO GO FOR A WALK IN [place]. EDUCATED PT ON NEED TO BE UP DURING DAY AND MOVING AROUND. PT REMAINS IN BED WITH EYES CLOSED. PT AGAIN TOLD THAT HE NEEDS TO BE UP WALKING THE HALLS AND DRINKING THE MAG CITRATE THAT WAS ORDERED BY DR KNAPP. PT SITS UP ON EDGE OF BED, SAYS TO NURSE "YOU'RE BEING AN ASSHOLE." REMINDED PT THAT WE ARE DOING FOR HIM WHAT HE NEEDS IN ORDER TO MEET HIS GOALS TO GO HOME. PT SEEMS AGGREEABLE TO THIS.
--- NOTE | 2017-05-17 18:32 | NUR ---
PATIENT AND HIS REPORTED TO THIS NURSE " I FARTED LIKE A NORMAL PERSON" PATIENT NOW UP AMBULATING IN THE HALLS. NO COMPLAINTS OF PAIN AT THIS TIME. NOW EATING DINNER. BOWEL TONES ACTIVE, ABDOMEN CONTINUES TO HAVE SOME DISTENSION. NO NAUSEA OR VOMITING. VS STABLE.
--- NOTE | 2017-05-17 18:36 | NUR ---
PATIENT ACTIVE THROUGOUT DAY, APPEARS CALM AND COMFORTABLE. NOW PASSING ACTIVE FLATUS. AT BEDSIDE, ALTHOUGH DISCOURAGED, CONTINUES TO SLEEP IN PATIENT'S BED WITH PATIENT. EATING WELL, NO NAUSEA. ACTIVE BOWEL TONES, DISTENTION IMPROVED.
--- NOTE | 2017-05-17 19:12 | NUR ---
RECEIVED REPORT FROM RN. PATIENT DENIES NEEDS AT THIS TIME.
--- NOTE | 2017-05-17 20:10 | NUR ---
PATIENT REPORTS 6/10 ABD PAIN. PRN PO PAIN MEDICATION ADMINISTERED. PATIENT DENIES NEEDS AT THIS TIME.
--- NOTE | 2017-05-17 21:38 | NUR ---
PATIENT REPORTS 2/10 ABD PAIN AND DENIES NEED FOR PAIN MEDICATION. PATIENT WAS FOUND IN ROOM CRYING. HE REPORTED THAT HE RECEIVED AN UPSETTING PHONE CALL. PATIENT APPEARS ANXIOUS, AND HE REPORTS THAT HE WOULD LIKE SOMETHING FOR ANXIETY. MEDICATION ADMINISTERED PER EMAR. PATIENT DENIES ANY OTHER NEEDS AT THIS TIME.
--- NOTE | 2017-05-17 23:21 | NUR ---
PATIENT IS RESTING IN BED COMFORTABLY. BREATHING IS EVEN AND UNLABORED.
--- NOTE | 2017-05-18 01:27 | NUR ---
PATIENT RESTING IN BED COMFORTABLY. BREATHING IS EVEN AND UNLABORED.
--- NOTE | 2017-05-18 01:45 | NUR ---
PATIENT REPORTS 8/10 ABD PAIN. PRN ORAL PAIN MEDICATION GIVEN PER EMAR. PATIENT DENIES OTHER NEEDS AT THIS TIME.
--- NOTE | 2017-05-18 02:10 | NUR ---
PATIENT REPORTS NAUSEA AFTER DRINKING WATER. PRN ZOFRAN GIVEN PER EMAR. PATIENT STATES "I DRANK THE WATER REALLY FAST." DENIES OTHER NEEDS AT THIS TIME.
--- NOTE | 2017-05-18 02:30 | NUR ---
PATIENT REPORTED NAUSEA, RESULTING IN 300 ML EMISIS. AFTER STARTING NEW IV, PRN IV ZOFRAN ADMINISTERED. PATIENT DENIES OTHER NEEDS AT THIS TIME.
--- NOTE | 2017-05-18 03:50 | NUR ---
PATIENT REPORTS 5/10 ABD PAIN. PRN ORAL PAIN MEDICATION GIVEN PER EMAR, NO COMPLAINTS OF NAUSEA.
--- NOTE | 2017-05-18 05:23 | NUR ---
PATIENT HAS BEEN RESTING THROUGHOUT SHIFT. VSS. PAIN HAS BEEN [id number] CONTROLLED WITH PRN PO PAIN MEDICATION. PATIENT HAD ONE EPISODE OF NAUSEA WITH EMISIS. IV ZOFRAN ADMINISTERED WITH PATIENT STATING ADEQUATE RELIEF OF NAUSEA. NO ACUTE CHANGES FROM BEGINNING OF SHIFT ASSESSMENT. HE IS SALINE LOCKED, INDEPENDENT IN HIS ROOM. NO ACUTE CHANGES FROM BEGINNING OF SHIFT ASSESSMENT. INTENTIONAL ROUNDING DONE WITH ALL PATIENT'S NEEDS MET.
--- NOTE | 2017-05-18 06:10 | NUR ---
PATIENT IS RESTING IN BED CONFORTABLY. HE DENIES NEEDS AT THIS TIME. RESPIRATIONS ARE EVEN AND UNLABORED.
--- NOTE | 2017-05-18 07:15 | NUR ---
BEDSIDE REPORT. PT RESTING IN BED, EYES CLOSED RR EVEN, NO DISTRESS NOTED. PT APPEARS TO BE SLEEPING AT THIS TIME. SIGNIFICANT OTHER IN ROOM WITH PT
--- NOTE | 2017-05-18 14:15 | NUR ---
PT AMBULATED IN HALLS FOR 30 MINS. RETURNED TO ROOM REPORTED NAUSEA AND REQUEST NASUEA MEDICINE. ZOFRAN GIVEN, EFFECTIVE. NO EMESIS. PT CONT. TO HAVE DISTENDED/FIRM ABD. BOWEL TONE ACTIVE, FLATUS POSITIVE
--- NOTE | 2017-05-18 18:30 | NUR ---
PT HAS BEEN UP AMBULATING IN HALLS, HE HAS BEEN PLEASEANT, GOOD PAIN CONTROL, ACTIVE BOWELS, FLATUS POSITIVE. HE HAS HAD NO BM OF YET, ABDOMEN DISTENDED AND FIRM. PERCOCET ADMINISTERED TWICE OVER SHIFT. TOLERATING REGUALR DIET WELL, ZOFRAN GIVEN ONCE FOR MILD NAUSEA AFTER WALKING.
--- NOTE | 2017-05-18 19:05 | NUR ---
RECEIVED REPORT FROM RN. PATIENT CURRENTLY AMBULATING IN HALLS.
--- NOTE | 2017-05-18 20:30 | NUR ---
pt complained of feeling nauseous and pain 03/02 in abd. states, "its like a roller coaster, i either feel really good, or i dont." gave zofran iv and percocet for pain. gave two cups of ice chips per pt request. cleaned up bedside tables. pt has no further needs. call light in reach.
--- NOTE | 2017-05-18 21:10 | NUR ---
PATIENT IS RESTING IN BED COMFORTABLY. BREATHING IS EVEN AND UNLABORED. ASSESSMENT DONE. PATIENT DENIES NEEDS AT THIS TIME.
--- NOTE | 2017-05-18 22:09 | NUR ---
NURSE NOTIFIED RE BP.
--- NOTE | 2017-05-18 22:34 | NUR ---
PATIENT IS RESTING COMFORTABLY IN BED. HE REPORTS HIS ABD PAIN AT 3/10. HE DENIES NEEDS AT THIS TIME.
--- NOTE | 2017-05-19 00:28 | NUR ---
PATIENT REPORTS 9/10 ABD PAIN. PRN PO PAIN MEDICATION GIVEN PER EMAR. PATIENT DENIES NEEDS AT THIS TIME.
--- NOTE | 2017-05-19 00:41 | NUR ---
PATIENT REPORTS NAUSEA. PRN IV ZOFRAN GIVEN PER EMAR. HE ALSO REPORTS BEING COLD. TEPERATURE IS 98.6, WARM BLANKET GIVEN. PATIENT IS NOW RESTING IN BED AND DENIES OTHER NEEDS AT THIS TIME.
--- NOTE | 2017-05-19 02:31 | NUR ---
PATIENT IS RESTING IN BED COMFORTABLY. BREATHING IS EVEN AND UNLABORED. HE DENIES NEEDS AT THIS TIME.
--- NOTE | 2017-05-19 05:00 | NUR ---
PATIENT REPORTS 7/10 ABD PAIN, PRN PO PAIN MEDICATION GIVEN. HE ALSO STATES HE HAS MILD NAUSEA, PRN ZOFRAN GIVEN. ENCOURAGED EATING CRACKERS OR A LIGHT SNACK WITH PAIN MEDICATION. ALSO EDUCATED THE PATIENT ON THE IMPORTANCE OF DRINKING WATER AND AVOID SODA. PATIENT STATED THAT HE WOULD DRINK MORE WATER. DENIES ANY OTHER NEEDS AT THIS TIME.
--- NOTE | 2017-05-19 05:17 | NUR ---
PATIENT HAS BEEN RESTING THROUGHOUT SHIFT. VSS. PAIN HAS BEEN WELL CONTROLLED ON PO PRN PAIN MEDICATION AND NAUSEA WITH PRN IV ZOFRAN. HE AMBULATES INDEPENDENTLY IN THE ROOM AND IS SALINE LOCKED. NO ACUTE CHANGES FROM BEGINNING OF SHIFT ASSESSMENT. INTENTIONAL ROUNDING DONE WITH ALL PATIENT'S NEEDS MET.
--- NOTE | 2017-05-19 06:03 | NUR ---
PATIENT RESTING COMFORTABLY IN BED. BREATHING IS EVEN AND UNLABORED. NO SIGNS OF DISTRESS. CALL LIGHT WITHIN REACH.
--- NOTE | 2017-05-19 07:38 | NUR ---
PT REPORTING HEARTBURN THIS AM, PEPCID GIVEN. PT ALERT AND ORIETED AND COOPERATIVE.
--- NOTE | 2017-05-19 10:02 | NUR ---
PT CALLED [facility] TO REQUEST PAIN COVERAGE. REPORTS PAIN IN ABD, HE SAID "LIKE THINGS ARE MOVING AROUND" PT ADMINISTERED TWO TABS NORCO AT THIS TIME. HE AGREES TO GET UP AND WALK ONCE PAIN MEDCATIONS "KICK IN" TRADE FACILITATOR IN TO PT ROOM FOR V/S AND SPOKE WITH PT ABOUT TAKING A SHOWER AFTER HE WALKS. PT HAS NOT BEEN AGREEABLE TO SHOWER THE LAST TWO DAYS
--- NOTE | 2017-05-19 10:04 | NUR ---
PT IS SITTING UP ON THE SIDE OF THE BED WITH CALL LIGHT IN REACH. PT SAID HE MAY SHOWER LATER ON, WILL KEEP ENCOURAGING HIM TO SHOWER. PT IS STILL WORKING ON HIS BREAKFAST. PT ASKED FOR A CUP OF ICE
--- NOTE | 2017-05-19 12:30 | NUR ---
PT IS CURRENTLY AMBULATING IN HALLWAY
--- NOTE | 2017-05-19 12:39 | NUR ---
PT SITING UP AT BEDSIDE FOR LUNCH. PT REFUSED TO WALK AGAIN BEFORE LUNCH. WILL CONTIUE TO ENCOURAGE PT TO WALK, EDUCATION GIVEN OF BENIFIT OF AMBULATING.
--- NOTE | 2017-05-19 13:50 | NUR ---
PT UP AMBUALTING FOR 20 MINUTES STRAIGHT. LAUGHING AND JOKING WITH STAFF. NO DISTRESS NOTED. ABD STILL DISTENDED AND FIRM. PT IS STILL PASSING FLATUS
--- NOTE | 2017-05-19 13:56 | NUR ---
PT IS CURRENTLY RESTING IN BED WITH CALL LIGHT IN REACH. PT HAS AMBULATED IN HALLWAY TWICE NOW. PT ASKED FOR IV TO BE WRAPPED HE WOULD LIKE TO SHOWER SOON.
--- NOTE | 2017-05-19 14:18 | NUR ---
PT UP TO SHOWER AT THIS TIME PASSING LARGE QUANTITIES OF FLATUS
--- NOTE | 2017-05-19 16:13 | NUR ---
PT IS SITTING UP IN BED WITH CALL LIGHT IN REACH, PT IS ON THE PHONE.
--- NOTE | 2017-05-19 17:58 | NUR ---
PT HAS BEEN AMBUALTING IN HALLS HAVE GIVEN PERCOCET TWO TABS TWICE OVER SHIFT, NO REPORTED NAUSEA OVER SHIFT. ABDOMEN REMAINS DISTENTED AND FIRM. ABD XRAY THIS, ATTEMPTED TO CALL TO REPORT, NO ANSWER. HE HAS SHOWERED, VOIDING WELL. COOPERATIVE WITH CARE.
--- NOTE | 2017-05-19 18:18 | NUR ---
PT IS RESTING IN BED SAFELY WITH CALL LIGHT IN REACH. PT ASKED FRO ICE CREAM.
--- NOTE | 2017-05-19 18:31 | NUR ---
PT CALLED NURSES STATION TO REQUEST HIS NURSE. RNTO ROOM, PT REQUESTED PAIN COVERAGE. AND REQUESTED RN TO LOOK IN TOILET. PT HAD LARGE LIQUID STOOL. TWO PERCOCET GIVEN FOR 7/10 PAIN IN ABDOMEN
--- NOTE | 2017-05-19 18:39 | NUR ---
AT NURSES STATION AT THIS TIME, UPDATED ON PT HAVING LARGE LIQUID BM.
--- NOTE | 2017-05-19 19:05 | NUR ---
RECEIVED REPORT FROM RN. PATIENT DENIES NEEDS AT THIS TIME.
--- NOTE | 2017-05-19 20:11 | NUR ---
PATIENT IS RESTING COMFORTABLY IN BED. EVENING MEDICATION GIVEN AND ASSESSMENT DONE. PATIENT REPORTS 3/10 ABD PAIN. HE DENIES NEEDS AT THIS TIME.
--- NOTE | 2017-05-19 22:04 | NUR ---
PATIENT RESTING COMFORTABLY IN BED. HE REPORTS 5/10 ABD PAIN, PRN PO PAIN MEDICATION GIVEN PER EMAR. PATIENT DENIES OTHER NEEDS AT THIS TIME. CALL LIGHT WITHIN REACH.
--- NOTE | 2017-05-20 00:42 | NUR ---
PATIENT IS RESTING COMFORTABLY IN BED. BREATHING IS EVEN AND UNLABORED AND HE SHOWS NO SIGNS OF DISCOMFORT. CALL LIGHT WITHIN REACH.
--- NOTE | 2017-05-20 01:26 | NUR ---
PATIENT IS RESTING COMFORTABLY IN BED. HE REPORTS 0/10 PAIN. DENIES NEEDS AT THIS TIME. CALL LIGHT WITHIN REACH.
--- NOTE | 2017-05-20 03:32 | NUR ---
PT COMPLAINED OF 5/10 PAIN, "NOT REALLY STOMACH PAIN, ITS WHERE I GOT CUT OPEN." DRESSING IS INTACT. GAVE PERCOCET FOR PAIN. PT IN NO APPARENT DISTRESS AT THIS TIME, LAYING IN BED, WATCHING TV, VERY TALKATIVE. PT HAD LOOSE BM, RN FLUSHED TOILET. PT HAS NO FURTHER NEEDS AT THIS TIME. CALL LIGHT IN REACH.
--- NOTE | 2017-05-20 04:11 | NUR ---
PATIENT IS AWAKE IN BED WATCHING TV. PATIENT RATES ABD PAIN AT 1/10 AND DENIES NEEDS AT THIS TIME. CALL LIGHT WITHIN REACH.
--- NOTE | 2017-05-20 06:15 | NUR ---
PATIENT'S NIGHT WAS UNEVENTFUL. HE HAS BEEN RESTING THROUGHOUT SHIFT. VSS, AND PAIN HAS BEEN WELL CONTROLLED WITH PRN PO PAIN MEDICATION, NO COMPLAINTS OF NAUSEA AND IS TOLERATING HIS DIET WELL. BOWEL SOUNDS ARE ACTIVE, HE IS PASSING GAS, AND HAS HAD X3 BM'S THIS SHIFT. NO ACUTE CHANGES FROM BEGINNING OF SHIFT ASSESSMENT. INTENTIONAL ROUNDING DONE WITH ALL PATIENT'S NEEDS MET.
--- NOTE | 2017-05-20 07:47 | NUR ---
BEDSIDE REPORT RECIEVED FROM MEHUL LAM THIS AM AT APROXIMATELY 0715. PT SLEEPING, AROUSED EASILY TO VERBAL STIMULI. DRESSING TO MIDLINE ABDOMINAL INCISION C/D/I. LAP SITE TO MIDLINE UPPER ABDOMEN BERNADETTE, WNL. PT REPORTS PAIN IS WELL CONTROLLED AT THIS TIME.
--- NOTE | 2017-05-20 08:42 | NUR ---
PT IN BED ASLEEP, AROUSED TO PHONE RINGING. PT GIVEN SCHEDULED PEPCID.
--- NOTE | 2017-05-20 08:51 | NUR ---
PT GIVEN PERCOCET, 2 TABS PO PRN FOR C/O 6/10 ABDOMINAL PAIN.
--- NOTE | 2017-05-20 09:25 | NUR ---
PATIENT RESTING IN BED. DID NOT WAKE UP AT THIS KELLEN WILL CHECK AGAIN LATER.
[2017-05-20] MEDS ORDERED: MILK OF MA400 MG/5 M PO (10:06)
[2017-05-20] MEDS ORDERED: METOCLOPRAMIDE10 MG PO (10:07)
[2017-05-20] MEDS ORDERED: NICODERM CQ1 EAC1 TD (10:07)
[2017-05-20] MEDS ORDERED: TYLENOL325 MG PO (10:09)
[2017-05-20] MEDS ORDERED: MOTRIN IB200 MG PO (10:09)
--- NOTE | 2017-05-20 11:13 | NUR ---
DISCHARGE INSTRUCTIONS GIVEN TO PT. QUESTIONS ASKED AND ANSWERED. PT VERBALIZED UNDERSTANDING. IV D/C'D WNL.
[2017-05-20] MEDS ORDERED: NICOTINE1 EAC2 TD (11:16)
[2017-05-20] MEDS ORDERED: NICOTINE1 EAC1 TD (11:17)
--- NOTE | 2017-05-20 11:49 | NUR ---
LUNCH DELIVERED TO PT. PT TO DISCHARGE AFTER EATING LUNCH. PT EXCITED TO BE DISCHARGING TO HOME.
--- NOTE | 2017-05-20 15:06 | NUR ---
CHECKED ON PT TO SEE WHAT HIS PLAN WAS FOR A RIDE HOME, HE TOLD ME HE WAS PLANNING ON DRIVING HOME, SINCE HE WAS TAKING NARCOTICS I TOLD HIM HE IS NOT ALLOWED TO DRIVE HOME. HE WAS NOT HAPPY ABOUT IT, TOLD CHARGE NURSE AND HIS NURSE. GOT HIM A TAXI TICKET FOR A CARE RIDE HOME.
--- NOTE | 2017-05-30 13:40 | DS ---
[facility] [address], [place] [address] Signed DATE OF DISCHARGE: 05/20/17 REASON FOR ADMISSION: Small bowel obstruction. HISTORY OF PRESENT ILLNESS This 51-year-old white man was admitted to the hospital on May 11, 2017, by Dr. Obrien, [facility] General Surgeon. He had been ill for 2 days prior to admission with nausea and vomiting and vomited at least 20 times. He has never had abdominal operation in the past. Evaluation in the emergency room included a CT scan, which was said to show a high-grade small bowel obstruction. He is admitted for further evaluation and care. PERTINENT PHYSICAL EXAMINATION GENERAL: Showed a large tall man who is cooperative with abdominal distention. VITAL SIGNS: Pulse 89, respirations 19, blood pressure 112/76. CHEST: Had wheezes and rhonchi throughout. HEART: Regular without murmur. ABDOMEN: Had bowel sounds. There was abdominal distention. Nasogastric tube was placed, which did not deliver much initially. LABORATORY DATA White count was elevated at 17.8, hematocrit 55, platelets 400,000. Creatinine 1.2. A chest x-ray showed no pulmonary infiltrates and nasogastric tube was positioned well in the stomach. HOSPITAL COURSE He was admitted by Dr. Obrien, but transferred to my care soon thereafter, as I assume the call responsibility upon Dr. Obrien's departure. Continued nasogastric tube decompression was maintained and intravenous fluids administered. Notably, he has never had abdominal operation, although he did have a history of right groin incision for inguinal hernia repair. He had no particular family history of inflammatory bowel disease or other issue that was known. Improvement of his bowel obstruction was not forthcoming. On May 13, 2017, he underwent laparoscopy in hopes of finding a discrete small bowel lesion such as an inflammatory lesion from Crohn's disease that may have been associated with high-grade bowel obstruction. Due to the abdominal and enteric distention, thorough evaluation of the abdomen by laparoscopic approach was not reliable on that basis, he was converted to open laparotomy. He was noted to have decompression in the region of the ileum and proximal dilation of bowel related to that process. 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 The remaining small bowel was entirely normal with no evidence of stricture, neoplasm, inflammatory lesion or other problem. Electronically Signed By: SEGUNDO KNAPP MD 05/30/17 1340 PATIENT NAME: HERIBERTO BOOTHE DISCHARGE SUMMARY DATE OF : 61 PHYSICIAN: SEGUNDO KNAPP MD REPORT #: [id number] REPORT IS CONFIDENTIAL AND NOT TO BE RELEASED WITHOUT AUTHORIZATION [facility] [address], [place] [address] Signed His nasogastric tube was removed at time of operation and left out. He was then observed though allowed to have clear liquids soon after operation. Ambulation and pulmonary care was maintained to include bronchodilator therapy. A STORAGE BATTERY CHARGER device was used for pain control as well as nonsteroidal Toradol. The patient was markedly hungry and was allowed to have some semisolid food. He maintained abdominal distention, but ultimately was tolerating liquids and full liquids well. In time, he did have flatus and ultimately solid bowel movements. A plain abdominal KUB was obtained the day prior to discharge noting distended bowel loops, but no evidence of bowel obstruction proper. By time of discharge, he is ambulating well. He has had several bowel movements following cathartic use including Mag Citrate and Milk of Magnesia and the initiation of Reglan orally. His abdominal distention has subsided and he is tolerating a regular diet. DISCHARGE MEDICATIONS Will include Tylenol 650 mg p.o. q.6 hours p.r.n. pain or Motrin 600 mg p.o. q.6 hours p.r.n. pain. He will be sent home with Reglan 10 mg p.o. t.i.d., #30 as well as nicotine patch 1 topically q. day, refill #3, dispense #30. He will resume his usual medications to include vitamin B complex tablet daily, vitamin E 200 mg tablet daily, vitamin D3 400 unit capsule q. day, vitamin C 500 mg p.o. q. day, and aspirin 81 mg p.o. q. day. He will discontinue his Braggadocio medication. 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 Reactive airways disease. Nicotine addiction. Prolonged postoperative bowel dysfunction (resolved). MD TAL Garduno/Modl Electronically Signed By: SEGUNDO KNAPP MD 05/30/17 1340 PATIENT NAME: HERIBERTO BOOTHE DISCHARGE SUMMARY DATE OF : 61 PHYSICIAN: SEGUNDO KNAPP MD REPORT #: [id number] REPORT IS CONFIDENTIAL AND NOT TO BE RELEASED WITHOUT AUTHORIZATION [address] [place], [place] [address] Signed /[id number] Electronically Signed By: SEGUNDO KNAPP MD 05/30/17 1340 PATIENT NAME: HERIBERTO BOOTHE NORA DISCHARGE SUMMARY DATE OF : 61 PHYSICIAN: SEGUNDO KNAPP MD REPORT #: [id number] REPORT IS CONFIDENTIAL AND NOT TO BE RELEASED WITHOUT AUTHORIZATION
== END 2017-05-20 13:10 | disposition home or self-care (01) | DRG 336 ==
LOC: ED 10:07 → MS 14:05
PROVIDERS: Surgery; ADMIT Surgery
PROC: 0DNT4ZZ (ICD-10-PCS; 2017-05-13)
PROC: 3E0234Z Introduction of Serum, Toxoid and Vaccine into Muscle, Percutaneous Approach (ICD-10-PCS; 2017-05-13)
PROC: 0DTJ0ZZ Resection of Appendix, Open Approach (ICD-10-PCS; principal; 2017-05-13 17:00)
PROC: 0DJD4ZZ Inspection of Lower Intestinal Tract, Percutaneous Endoscopic Approach (ICD-10-PCS; 2017-05-13 17:00)
DX: K56.69 Other intestinal obstruction (principal); K50.10 Crohn's disease of large intestine without complications; F17.210 Nicotine dependence, cigarettes, uncomplicated; Z88.0 Allergy status to penicillin; Z23 Encounter for immunization
CPT/HCPCS: 00840; 36415; 51702; 71010; 71020; 74000; 74020; 74177; 80048; 80053; 81001; 82150; 83690; 83735; 83880; 85025; 85610; 90674; 93005; 93010; 94640; 94762; 96361; 96374; 96375; 99285; G0008; J0330; J1100; J1170; J1720; J1885; J2060; J2250; J2405; J2704; J2710; J2765; J3010; J3490; J7030; J7120; Q9967

== ENCOUNTER 2019-01-12 15:35 | Emergency (ER) | payer OTHER ==
[~2019-01-12] VITALS: Ht 193 cm; Wt 86.9 kg
[~2019-01-12 15:35] MED LIST changes: +ASPIRIN325 MG PO; +B COMPLEX1 EACH PO; +METOCLOPRAMIDE10 MG PO; +MILK OF MA400 MG/5 M PO; +MOTRIN IB200 MG PO; +NICODERM CQ1 EAC1 TD; +NICOTINE1 EAC1 TD; +NICOTINE1 EAC2 TD; +TYLENOL325 MG PO; +VITAMIN C500 M1 PO; +VITAMIN D400 UNIT PO; +VITAMIN E200 UNI1 PO
== END 2019-01-12 18:21 | disposition home or self-care (01) ==
LOC: ED 15:35
DX: G62.9 Polyneuropathy, unspecified (principal); J45.909 Unspecified asthma, uncomplicated; F17.200 Nicotine dependence, unspecified, uncomplicated; Z88.0 Allergy status to penicillin; Z79.899 Other long term (current) drug therapy
CPT/HCPCS: 73630; 99283

== ENCOUNTER 2019-01-21 17:08 | Emergency (ER) | payer OTHER ==
[~2019-01-21] VITALS: Ht 193 cm; Wt 99.8 kg
--- OUTSIDE RECORDS SUMMARY | 2019-01-21 17:10 | XMS ---
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 Tab has no Care Guidelines for this patient. Satya VISIT COUNT (12 MO.) [address] [facility] TOTAL 2 NOTE: Visits indicate total known visits. ED/C VISIT TRACKING (12 MO.) 01/21/2019 17:08 [facility] [place] TYPE: Emergency COMPLAINT: - SPIDER BITE 01/12/2019 15:35 [facility] [place] TYPE: Emergency COMPLAINT: - FOOT PAIN/SWELLING NON INJURY DIAGNOSES: - Other terminal clerk (current) drug therapy - Allergy status to penicillin - Unspecified asthma, uncomplicated - Paresthesia of skin - Polyneuropathy, unspecified - Nicotine dependence, unspecified, uncomplicated INPATIENT VISIT TRACKING (12 MO.) No inpatient visits to display in this time frame [email or web address]
[2019-01-21] MEDS ORDERED: BACTRIM DS TAB1 EACH PO (20:05)
== END 2019-01-21 20:29 | disposition home or self-care (01) ==
LOC: ED 17:08
DX: S60.562A Insect bite (nonvenomous) of left hand, initial encounter (principal); L08.9 Local infection of the skin and subcutaneous tissue, unspecified; F17.200 Nicotine dependence, unspecified, uncomplicated; Z88.0 Allergy status to penicillin; W57.XXXA Bitten or stung by nonvenomous insect and other nonvenomous arthropods, initial encounter
CPT/HCPCS: 99282

== ENCOUNTER 2019-05-08 12:08 | Emergency (ER) | payer OTHER ==
[~2019-05-08] VITALS: Ht 193 cm; Wt 99.8 kg
[~2019-05-08 12:08] MED LIST changes: +BACTRIM DS TAB1 EACH PO; +TYLENOL WITH C1 EACH PO
[2019-05-08] MEDS ORDERED: CYCLOBENZAPRINE10 MG PO (14:17)
== END 2019-05-08 14:40 | disposition home or self-care (01) ==
LOC: ED 12:08
DX: M54.5 Low back pain (principal); F17.200 Nicotine dependence, unspecified, uncomplicated; Z88.0 Allergy status to penicillin
CPT/HCPCS: 96372; 99283; J1885

== ENCOUNTER 2020-05-27 07:07 | Emergency (ER) | payer SELFPAY ==
[~2020-05-27] VITALS: Ht 193 cm; Wt 99.8 kg
[~2020-05-27 07:07] MED LIST changes: +CYCLOBENZAPRINE10 MG PO
[2020-05-27] MEDS ORDERED: NORCO 5-325 TA1 EACH PO (08:14)
== END 2020-05-27 08:29 | disposition home or self-care (01) ==
LOC: ED 07:07
DX: R07.89 Other chest pain (principal); J45.909 Unspecified asthma, uncomplicated; F17.200 Nicotine dependence, unspecified, uncomplicated; Z88.0 Allergy status to penicillin
CPT/HCPCS: 71046; 71250; 99285-25

== ENCOUNTER 2021-09-14 13:37 | Emergency (ER) | payer SELFPAY ==
[~2021-09-14] VITALS: Ht 193 cm; Wt 99.8 kg
== END 2021-09-14 17:23 | disposition home or self-care (01) ==
LOC: ED 13:37
DX: U07.1 COVID-19 (principal); R10.32 Left lower quadrant pain; R19.7 Diarrhea, unspecified; J45.909 Unspecified asthma, uncomplicated; F17.200 Nicotine dependence, unspecified, uncomplicated; Z88.0 Allergy status to penicillin
CPT/HCPCS: 74177; 80053; 83690; 85025; 96375; 99284-25; C9803; J1170; J1885; J2405; J7030; Q9967; U0003

== ENCOUNTER 2021-12-01 14:25 | Emergency (ER) | payer SELFPAY ==
[~2021-12-01] VITALS: Ht 193 cm; Wt 99.8 kg
[2021-12-01] MEDS ORDERED: DOXYCYCLINE HY100 MG PO (19:06)
== END 2021-12-01 19:35 | disposition home or self-care (01) ==
LOC: ED 14:25
DX: L03.116 Cellulitis of left lower limb (principal); L03.115 Cellulitis of right lower limb; J45.909 Unspecified asthma, uncomplicated; F17.200 Nicotine dependence, unspecified, uncomplicated; Z88.0 Allergy status to penicillin
CPT/HCPCS: 99283; A9270

== ENCOUNTER 2022-11-24 15:20 | Emergency (ER) | payer SELFPAY ==
[~2022-11-24] VITALS: Ht 193 cm; Wt 102.1 kg
[~2022-11-24 15:20] MED LIST changes: +DOXYCYCLINE HY100 MG PO; +MEDROL4 M1 PO; +NAPROSYN500 MG PO
--- OUTSIDE RECORDS SUMMARY | 2022-11-24 17:18 | XMS ---
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 Tab has no Care Guidelines for this patient. Care History Medical/Surgical 12/02/2021 [facility] CHW RECEIVED CASE MGMNT CONSULT -HELP PATIENT ESTABLISH WITH A PCP. CHW CALLED [phone] AND PHONE RANG ONE TIME AND WENT SILENT NO FURTHER RING TONE AND OR VOICEMAIL. CALLED MULTIPLE TIMES- SAME OUTCOME. PLEASE HAVE PATIENT PROVIDE CORRECT CONTACT NUMBER AND OR ADDRESS TO SEND PCP LIST. E.D. VISIT COUNT (12 MO.) 3 [facility] TOTAL 3 NOTE: Visits indicate total known visits. ED/UCC VISIT TRACKING (12 MO.) 11/24/2022 15:21 [facility] [place] TYPE: Emergency COMPLAINT: - RT KNEE PAIN 01/06/2022 13:21 [facility] [place] TYPE: Emergency COMPLAINT: - RT SHOULDER PAIN DIAGNOSES: - Unspecified dislocation of right acromioclavicular joint, initial encounter - Exposure to other specified factors, initial encounter - Nicotine dependence, unspecified, uncomplicated - Allergy status to penicillin - Pain in right shoulder - Unspecified asthma, uncomplicated 12/01/2021 14:25 [facility] [place] TYPE: Emergency COMPLAINT: - BOTH ANKLE PAIN DIAGNOSES: - Cellulitis of right lower limb - Pain in right ankle and joints of right foot - Nicotine dependence, unspecified, uncomplicated - Cellulitis of left lower limb - Unspecified asthma, uncomplicated - Allergy status to penicillin INPATIENT VISIT TRACKING (12 MO.) No inpatient visits to display in this time frame [id number]
== END 2022-11-24 16:37 | disposition home or self-care (01) ==
LOC: ED 15:20
DX: S83.91XA Sprain of unspecified site of right knee, initial encounter (principal); J45.909 Unspecified asthma, uncomplicated; F17.200 Nicotine dependence, unspecified, uncomplicated; Z88.0 Allergy status to penicillin; X58.XXXA Exposure to other specified factors, initial encounter
CPT/HCPCS: 73560; 99283-25

== ENCOUNTER 2024-11-17 09:30 | Emergency (ER) | payer OTHER ==
[~2024-11-17] VITALS: Ht 193 cm; Wt 86.1 kg
[2024-11-17 09:43] LABS: MCH 27.8 (27-36); MCHC 33.3 g/dl (30-36)
[2024-11-17 09:45] LABS: BASOPHILS 0.6 % (0-2); EOSINOPHILS 1.4 % (0-6); HEMATOCRIT 44.2 % (35.0-50.0); HEMOGLOBIN 14.7 g/dL (12.0-18.0); LYMPHOCYTES 14.1 % (24-44); MCV 83.3 fl (81-99); MONOCYTES 8.3 % (0-12); NEUTROPHILS 75.6 % (39-80); PLATELET COUNT 230 K/uL (140-440); RDW 14.1 (10.5-15.0)
[2024-11-17 09:54] LABS: PARTIAL THROMBOPLASTIN TIME 32.1 Sec (22.9-41.3)
[2024-11-17 09:55] LABS: INR 2.34 (0.80-1.30); PROTIME 25.7 Sec (11.2-14.2)
[2024-11-17 09:59] LABS: ALBUMIN 3.9 g/dL (3.4-5.0); ALBUMIN/GLOBULIN RATIO 1.18 (1.1-2.4); ANION GAP 9.8 (7-21); BILIRUBIN, TOTAL 0.7 mg/dL (0.2-1.0); BUN/CREATININE RATIO 24.07 (6.0-28.6); CALCIUM 9.6 mg/dL (8.5-10.1); CREATININE, SERUM 1.08 mg/dL (0.70-1.30); POTASSIUM 3.8 mmol/L (3.5-5.1); PROTEIN, TOTAL 7.2 g/dL (6.4-8.2)
[2024-11-17] MEDS ORDERED: PAIN RELIEF650 MG PO (10:05)
[2024-11-17] MEDS ORDERED: LIPITOR80 MG GT (10:05)
[2024-11-17] MEDS ORDERED: MELATONIN5 M2 PO (10:06)
[2024-11-17] MEDS ORDERED: COZAAR50 MG PO (10:06)
[2024-11-17] MEDS ORDERED: BISACODYL5 MG PO (10:06)
[2024-11-17] MEDS ORDERED: MIRALAX17 GM PO (10:07)
[2024-11-17] MEDS ORDERED: NICODERM CQ1 EAC1 TD (10:10)
[2024-11-17] MEDS ORDERED: NARCAN4 MG NAS (10:10)
[2024-11-17] MEDS ORDERED: TIZANIDINE HCL4 MG PO (10:11)
[2024-11-17] MEDS ORDERED: WARFARIN SODIUM10 MG PO (10:12)
[2024-11-17] MEDS ORDERED: OXYCODONE HCL5 MG PO (10:13)
[2024-11-17] MEDS ORDERED: ACETAMINOPHEN 1,000 MG/100 ML VIAL IV ONE (11:15)
[2024-11-17 14:55] VITALS: BP 138/80
--- NOTE | 2024-11-17 22:56 | EKG ---
[facility] [address] [facility] [place] [address] Signed Normal sinus rhythm Normal ECG When compared with ECG of 30-JUL-2024 09:00, T wave amplitude has decreased in Lateral leads Confirmed by Marlene Rondon MD () on 11/17/2024 10:56:27 PM Electronically Signed By: MARLENE RONDON MD 11/17/24 2256 PATIENT NAME: HERIBERTO BOOTHE Electrocardiogram DATE OF : 61 PHYSICIAN: MARLENE RONDON MD REPORT #: [id number] REPORT IS CONFIDENTIAL AND NOT TO BE RELEASED WITHOUT AUTHORIZATION
== END 2024-11-17 15:40 ==
LOC: ED 09:30
PROVIDERS: Emergency Medicine
DX: I63.512 Cerebral infarction due to unspecified occlusion or stenosis of left middle cerebral artery (principal); J45.909 Unspecified asthma, uncomplicated; F17.200 Nicotine dependence, unspecified, uncomplicated; Z79.01 Long term (current) use of anticoagulants; Z79.899 Other long term (current) drug therapy; Z88.0 Allergy status to penicillin
CPT/HCPCS: 36415; 70450; 70496; 70498; 70551; 71045; 80053; 84484; 85025; 85610; 85730; 93005; 93010; 94799; 99285; J0131; Q3014; Q9967

== ENCOUNTER 2025-02-19 20:02 | Emergency (ER) | payer OTHER ==
[~2025-02-19] VITALS: Ht 193 cm; Wt 110.3 kg
[~2025-02-19 20:02] MED LIST changes: +BISACODYL5 MG PO; +COZAAR50 MG PO; +LIPITOR80 MG GT; +MELATONIN5 M2 PO; +MIRALAX17 GM PO; +NARCAN4 MG NAS; +OXYCODONE HCL5 MG PO; +PAIN RELIEF650 MG PO; +TIZANIDINE HCL4 MG PO; +WARFARIN SODIUM10 MG PO
[2025-02-19] MEDS ORDERED: IBLOOD GLUCOSE TEST STRIP 1 EA TEST XX ONE (20:15)
[2025-02-19] MEDS ORDERED: GABAPENTIN100 MG PO (20:24)
[2025-02-19] MEDS ORDERED: SENNA8.6 MG PO (20:25)
[2025-02-19] MEDS ORDERED: SIMETHICONE125 M1 PO (20:25)
[2025-02-19] MEDS ORDERED: MORPHINE SULFATE 4 MG/ML VIAL IV ONE (20:30)
[2025-02-19 20:58] LABS: BASOPHILS 0.7 % (0.2-1.2); EOSINOPHILS 2.9 % (0.8-7.0); HEMATOCRIT 46.3 % (40.1-51.0); HEMOGLOBIN 14.9 g/dL (13.7-17.5); LYMPHOCYTES 26.3 % (21.8-53.1); MCH 27.9 PG (25.7-32.2); MCHC 32.2 g/dL (32.3-36.5); MCV 86.5 fL (79.0-92.2); MONOCYTES 10.7 % (5.3-12.2); NEUTROPHILS 59.2 % (34.0-67.9); PLATELET COUNT 326 K/uL (163-337); RBC 5.35 M/uL (4.63-6.08)
[2025-02-19 21:03] LABS: BILIRUBIN, URINE NEGATIVE (negative); BLOOD/HGB, URINE MODERATE (Negative); KETONE, URINE NEGATIVE (Negative); LEUK ESTERASE, URINE MODERATE (negative); NITRITE, URINE NEGATIVE (negative)
[2025-02-19 21:08] LABS: INR 1.58 (0.80-1.30); PROTIME 18.3 Sec (11.2-14.2)
[2025-02-19 21:10] LABS: PARTIAL THROMBOPLASTIN TIME 28.3 Sec (22.9-41.3)
[2025-02-19 21:17] LABS: ALBUMIN/GLOBULIN RATIO 1.11 (1.1-2.4); AMPHETAMINES, URINE NEGATIVE (NEGATIVE); ANION GAP 11.2 (7-21); BACTERIA, URINE 2+ /hpf (negative); BARBITURATES, URINE NEGATIVE (NEGATIVE); BENZODIAZEPINE, URINE NEGATIVE (NEGATIVE); BILIRUBIN, TOTAL 0.4 mg/dL (0.2-1.0); BUN/CREATININE RATIO 24.71 (6.0-28.6); BUPRENORPHINE, URINE NEGATIVE (NEGATIVE); CALCIUM 9.4 mg/dL (8.5-10.1); CANNABINOID, URINE NEGATIVE (NEGATIVE); CASTS, URINE NONE SEEN \\lpf; COCAINE, URINE NEGATIVE (NEGATIVE); COLLECTION TYPE, URINE CLEAN CATCH; CREATININE, SERUM 0.89 mg/dL (0.70-1.30); CRYSTALS, URINE NONE SEEN (0-1+); ECSTASY, URINE NEGATIVE (NEGATIVE); EPITHELIAL CELLS, URINE NONE SEEN /lpf (0-1+); FENTANYL, URINE NEGATIVE (NEGATIVE); METHADONE, URINE NEGATIVE (NEGATIVE); OPIATES, URINE NEGATIVE (NEGATIVE); OXYCODONE, URINE POSITIVE (NEGATIVE); PHENCYCLIDINE, URINE NEGATIVE (NEGATIVE); POTASSIUM 4.2 mmol/L (3.5-5.1); PROTEIN, TOTAL 7.6 g/dL (6.4-8.2); REFLEX CULTURE, URINE Yes (No); WHITE BLOOD CELLS, URINE >50 /HPF (0-5)
[2025-02-19] MEDS ORDERED: levoFLOXacin 500 MG TAB PO ONE (22:00)
[2025-02-19] MEDS ORDERED: HYDROmorphone HCL 1 MG/ML SYR IV ONE (22:15)
[2025-02-19] MEDS ORDERED: KETOROLAC TROMETHAMINE 30 MG/ML VIAL IV ONE (22:15)
[2025-02-19] MEDS ORDERED: LEVOFLOXACIN500 MG PO (22:20)
[2025-02-20] MEDS ORDERED: BUTALB/ACETAMINOPHEN/CAFFEINE 1 EACH CAP PO ONE ×2 (03:15→03:30)
[2025-02-20 03:28] VITALS: BP 145/88
[2025-02-20] MEDS ORDERED: SUMAtriptan succinate 6 MG/0.5 ML VIAL SUB-Q ONE (03:30)
[2025-02-20] MEDS ORDERED: GABAPENTIN 100 MG CAP PO ONE (04:30)
[2025-02-20] MEDS ORDERED: TIZANIDINE HCL 4 MG TABLET PO ONE (04:30)
--- NOTE | 2025-02-20 19:36 | EKG ---
[facility] [address] [facility] [place] [address] Signed Normal sinus rhythm Normal ECG When compared with ECG of 17-NOV-2024 09:57, No significant change was found Confirmed by hSerri Coombs DO ([id number]) on 02/20/2025 7:36:02 PM Electronically Signed By: SHERRI COOMBS DO 02/20/251935 PATIENT NAME: HERIBERTO BOOTHE SR Electrocardiogram DATE OF : 61 PHYSICIAN: SHERRI COOMBS DO REPORT #: [id number] REPORT IS CONFIDENTIAL AND NOT TO BE RELEASED WITHOUT AUTHORIZATION
== END 2025-02-20 08:16 | disposition home or self-care (01) ==
LOC: ED 20:02
PROVIDERS: Family Medicine
DX: N39.0 Urinary tract infection, site not specified (principal); J45.909 Unspecified asthma, uncomplicated; F17.200 Nicotine dependence, unspecified, uncomplicated; Z79.01 Long term (current) use of anticoagulants; Z88.0 Allergy status to penicillin
CPT/HCPCS: 36415; 70450; 70496; 70498; 71045; 80053; 80307; 81001; 84484; 85025; 85610; 85730; 87088; 87186; 93005; 93010; 99285-25; J1171; J1885; J2270; J3030; Q9967

== ENCOUNTER 2025-03-11 10:23 | Emergency (ER) | payer OTHER ==
[~2025-03-11] VITALS: Ht 193 cm; Wt 110.3 kg
[~2025-03-11 10:23] MED LIST changes: +GABAPENTIN100 MG PO; +LEVOFLOXACIN500 MG PO; +SENNA8.6 MG PO; +SIMETHICONE125 M1 PO
[2025-03-11 10:42] LABS: BASOPHILS 0.8 % (0.2-1.2); EOSINOPHILS 2.0 % (0.8-7.0); LYMPHOCYTES 24.7 % (21.8-53.1); MCH 28.2 PG (25.7-32.2); MCHC 31.9 g/dL (32.3-36.5); MCV 88.4 fL (79.0-92.2); MONOCYTES 9.3 % (5.3-12.2); NEUTROPHILS 62.7 % (34.0-67.9); RBC 5.18 M/uL (4.63-6.08)
[2025-03-11] MEDS ORDERED: SODIUM CHLORIDE 0.9% 1,000 ML IV ONE (10:45)
[2025-03-11] MEDS ORDERED: MORPHINE SULFATE 4 MG/ML VIAL IV ONE (10:45)
[2025-03-11 10:55] LABS: ALT (SGPT) 43.0 U/L (14-59); AST (SGOT) 19.0 U/L (15-37); GLOMERULAR FILTRATION RATE,EST 89.0 mL/min (>60); PROTEIN, TOTAL 7.4 g/dL (6.4-8.2); UREA NITROGEN 19.0 mg/dL (7-18)
[2025-03-11 12:13] LABS: BLOOD/HGB, URINE NEGATIVE (Negative); KETONE, URINE NEGATIVE (Negative); LEUK ESTERASE, URINE NEGATIVE (negative); NITRITE, URINE NEGATIVE (negative)
[2025-03-11] MEDS ORDERED: SOD PHOSPHATE/SOD BIPHOSPHATE 132 ML BTL PR ONE (13:30)
[2025-03-11 14:00] VITALS: BP 115/78
== END 2025-03-11 14:00 | disposition home or self-care (01) ==
LOC: ED 10:23
PROVIDERS: Emergency Medicine
DX: R10.12 Left upper quadrant pain (principal); J45.909 Unspecified asthma, uncomplicated; F17.200 Nicotine dependence, unspecified, uncomplicated; Z88.0 Allergy status to penicillin; Z88.2 Allergy status to sulfonamides
CPT/HCPCS: 36415; 51798; 74177; 80053; 81003; 83690; 85025; 96375; 99284-25; J2270; J2405; J7030; Q9967

== ENCOUNTER 2025-03-15 15:09 | Emergency (ER) | payer OTHER ==
[~2025-03-15] VITALS: Ht 193 cm; Wt 110.3 kg
[2025-03-15] MEDS ORDERED: MORPHINE SULFATE 4 MG/ML VIAL IV ONE (16:30)
[2025-03-15] MEDS ORDERED: SODIUM CHLORIDE 0.9% 1,000 ML IV ONE (16:30)
[2025-03-15 17:13] LABS: BASOPHILS 0.3 % (0.2-1.2); EOSINOPHILS 1.4 % (0.8-7.0); LYMPHOCYTES 21.5 % (21.8-53.1); MCH 28.0 PG (25.7-32.2); MCHC 31.7 g/dL (32.3-36.5); MCV 88.2 fL (79.0-92.2); MONOCYTES 8.8 % (5.3-12.2); NEUTROPHILS 67.7 % (34.0-67.9); RBC 5.08 M/uL (4.63-6.08)
[2025-03-15 17:22] LABS: BLOOD/HGB, URINE NEGATIVE (Negative); KETONE, URINE NEGATIVE (Negative); LEUK ESTERASE, URINE NEGATIVE (negative); NITRITE, URINE NEGATIVE (negative)
[2025-03-15 17:27] LABS: CRYSTALS, URINE NONE SEEN (0-1+); EPITHELIAL CELLS, URINE SQUAMOUS 1+ /lpf (0-1+)
[2025-03-15 17:28] LABS: BACTERIA, URINE NONE SEEN /hpf (negative); CASTS, URINE NONE SEEN \\lpf; REFLEX CULTURE, URINE No (No)
[2025-03-15 17:35] LABS: ALT (SGPT) 67.0 U/L (14-59); AST (SGOT) 36.0 U/L (15-37); GLOMERULAR FILTRATION RATE,EST 88.0 mL/min (>60); PROTEIN, TOTAL 7.5 g/dL (6.4-8.2); UREA NITROGEN 23.0 mg/dL (7-18)
[2025-03-15] MEDS ORDERED: HYDROmorphone HCL 1 MG/ML SYR IV ONE (18:00)
[2025-03-15] MEDS ORDERED: MAGNESIUM CITRATE 300 ML BTL PO ONE (18:45)
[2025-03-15] MEDS ORDERED: LORazepam 2 MG/ML VIAL IV ONE (23:15)
[2025-03-16] MEDS ORDERED: OXYCODONE HCL 5 MG TAB PO ONE (05:15)
[2025-03-16 07:42] VITALS: BP 129/95
== END 2025-03-16 07:42 | disposition home or self-care (01) ==
LOC: ED 15:09
PROVIDERS: Emergency Medicine
DX: K59.00 Constipation, unspecified (principal); J45.909 Unspecified asthma, uncomplicated; F17.200 Nicotine dependence, unspecified, uncomplicated; Z79.01 Long term (current) use of anticoagulants; Z79.899 Other long term (current) drug therapy; Z88.0 Allergy status to penicillin
CPT/HCPCS: 36415; 51702; 74177; 80053; 81001; 83690; 85025; 96374; 96375; 96376; 99284-25; A4311; A9270; J1171; J2060; J2270; J2405; J7030